=== PATIENT | female | born 1995 | race Caucasian/White ===

== ENCOUNTER 2020-09-11 10:16 | Emergency (ER) | payer MEDICAID, SELFPAY ==
[2020-09-11 10:21] VITALS: BP 111/64; PULSE 77; RESP 18; TEMP 36.9; O2SAT 98; BMI 20.9
--- NOTE | 2020-09-11 10:37 | ED_ITS ---
HPI - General Adult General Chief complaint: General Medical Stated complaint: cough Source: patient Mode of arrival: ambulatory Limitations: no limitations History of Present Illness HPI narrative: Patient presents to ED for cough, subjective fevers, headaches, body aches, and slight vomiting. 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 patient denies any shortness of breath, fever, chills, or weakness. Onset (ago): day(s) (2 days) Related Data Allergies Allergy/AdvReac Type Severity Reaction Status Date / Time No Known Allergies Allergy Unverified 08/11/20 17:02 [No Known Allergies*] Review of Systems Review of Systems: URI symptoms Yes all other systems are reviewed and are negative and unobtainable due to endotracheal tube Constitutional: Constitutional: Reports as per HPI, Reports no additional constitutional complaints, Reports chills, Reports fever(s) (subject fevers), Denies increased appetite and Denies night sweats Eyes: Eyes: Reports as per HPI and Reports no additional eye complaints ENT: Reports system reviewed and no additional complaints, except as documented and Reports as per HPI Cardiovascular: Cardiovascular: Reports as per HPI and Reports no additional cardiovascular complaints Respiratory: Respiratory: Reports as per HPI, Reports no additional respiratory complaints and Reports cough Gastrointestinal: Gastrointestinal: Reports as per HPI and Reports vomiting (vomitting resolved) Neurologic: Reports system reviewed and no additional complaints, except as documented and Reports as per HPI Psychiatric: Psychiatric: Reports no additional psychiatric complaints and Reports as per HPI [facility] Past Medical History Medical History (Updated 09/11/20 @ 11:15 by AFSHIN Pineda) No known health problems Social History Social History Alcohol intake: never Smoking Status: Current every day smoker Smoked in Last 30 Days: Yes Use of substances other than those prescribed or required for medical reasons: No Advance Directives: No Advance Directives Information Provided: No Physical Exam Vital Signs: Vital Signs: Vital Signs Temp Pulse Resp BP Pulse Ox 09/11/20 10:21 98.5 F 77 18 111/64 98 Body Mass Index 20.9 Const: General: cooperative, healthy appearing, comfortable, no acute distress and well developed Orientation/consciousness: patient oriented x3 HENMT: Head: Yes normal to inspection and Yes No palpable skull fracture present Eyes: General: appearance normal, both eyes and all related structures Neck: Neck: Yes normal visual inspection, Yes full ROM, Yes no lymphadenopathy, Yes no meningeal signs, No positive Brudzinski's sign and No positive Kernig's sign Chest: Chest palpation & inspection: normal inspection of the chest and normal palpation of entire chest wall Resp: Effort & Inspection: normal respiratory effort, able to speak in complete sentences, normal respiratory pattern, no audible wheezes, no cough, no grunting, not labored, no nasal flaring, no pursed lip breathing, no retractions, no stridor and not tachypneic Auscultation: clear to auscultation bilaterally Cardio: Jugular venous distension: no JVD Heart sounds: S1 normal heart sound present and S2 normal heart sound present GI: Inspection: Yes normal to inspection, No abdominal wall ecchymosis, No Abdominal wall edema, No distended and No incision Palpation (GI): Soft to palpation, not firm, nontender, no guarding and not rigid Percussion: Yes normal to percussion : General: No CVA tenderness and Yes no CVA tenderness Back/Spine/Pelvis: Back: no CVA tenderness, No CVA tenderness and No back tenderness Skin: General skin exam: no rashes or lesions noted Neuro: General: patient oriented x3, no meningeal signs and CN's II-XI intact bilaterally Cranial nerves: Yes CN's II-XII intact bilaterally Extrem: General: Yes normal to inspection and Yes full ROM Psych: Appearance: grossly normal, well kempt and not disheveled Course Course Course Narrative: History physical exam indicate URI. Patient does not need any labs or imaging. Patient is not toxic appearing. Patient on the phone talking to family members. Patient educated on self-isolation. patient swabbed from Covid-19 Reevaluation(s) Reevaluation #1: URI. Viral syndrome. Time: 11:12 Medical Decision Making [facility] Narrative Medical decision making narrative: URI. Viral Syndrome Discharge Plan Discharge Clinical Impression: Acute viral syndrome URI (upper respiratory infection) Qualifiers: URI type: unspecified viral URI Qualified Code(s): J06.9 - Acute upper respiratory infection, unspecified Patient Disposition: Home, Self-Care Instructions: Upper Respiratory Infection (ED), Viral Syndrome (ED) Additional Instructions: Return to the ED immediately for any chest pain, shortness of breath, weakness, inability to tolerate solid food/liquid, or any other concerning symptoms. Recommend 14 days self isolation if Covid-19 test comes back positive. Referrals: [place],[facility] [Primary Care Provider] - 2 days ( Viral syndrome and URI. COVID-19 testing pending. Recommend 14 days self-isolation if COVID test come back positive) Stand Alone Forms: Work/School Release Interventions: ED Discharge Assessment Last Done: 09/11/20 11:29 Discharge Date/Time: 09/11/20 11:36 Print Language: Albanian
== END 2020-09-11 11:36 | disposition home or self-care (01) ==
PROVIDERS: Physician Assistant; Emergency Provider Emergency Medicine
DX: J06.9 Acute upper respiratory infection, unspecified (principal); B34.9 Viral infection, unspecified; Z20.828 Contact with and (suspected) exposure to other viral communicable diseases; F17.200 Nicotine dependence, unspecified, uncomplicated
CPT/HCPCS: 87635; 99284

== ENCOUNTER 2020-11-11 16:26 | Emergency (ER) | payer MEDICAID, SELFPAY ==
[2020-11-11 16:30] VITALS: BP 124/68; PULSE 81; RESP 18; TEMP 36.9; O2SAT 98; BMI 20.9
[2020-11-11] MEDS: 0.9 % Sodium Chloride 1,000 ML 999 ML IVCONT (17:41)
[2020-11-11 17:52] LABS: MANUAL DIFF FLAG NO
[2020-11-11 18:02] LABS: Basophils Percent Auto 0.3 % (0-2); Eosinophils Absolute Auto 0.1 X10*3/uL (0.0-0.4); Eosinophils Percent Auto 0.7 % (0-4); Hematocrit 35.1 % (37-47); Hemoglobin 12.1 g/dl (12.0-16.0); Imm Gran Pct Auto 0.9 % (0.0-0.4); Lymphocytes Absolute Auto 2.7 X10*3/uL (1.2-4.9); Lymphocytes Percent Auto 25.2 % (20-40); Mean Corpuscular HGB Conc 34.5 g/dl (31.0-35.0); Mean Corpuscular Hemoglobin 29.6 pg (27.0-33.0); Mean Corpuscular Volume 85.8 fL (80-98); Mean Platelet Volume 11.3 fL (9.4-12.3); Monocytes Absolute Auto 0.8 X10*3/uL (0.1-1.2); Monocytes Percent Auto 7.8 % (2-11); Neutrophils Percent Auto 65.1 % (45-73); Platelet Count 201 X10*3/uL (160-400); Red Blood Count 4.09 X10*6/uL (4.20-5.50); Red Cell Distribution Width 12.8 % (11.0-16.0); White Blood Count 10.8 X10*3/uL (4.8-10.8)
--- NOTE | 2020-11-11 18:10 | ED_ITS ---
HPI - Nausea/Vomiting/Diarrhea General Chief complaint: Nausea/Vomiting/Diarrhea Stated complaint: vomiting Time Seen by Provider: 11/11/20 17:23 Source: patient Mode of arrival: ambulatory Limitations: no limitations History of Present Illness HPI Narrative: 25-year-old female presents with nausea vomiting with a positive test. Her last menstrual cycle was in the beginning of September. over the past 3 days she has been unable to eat, drink, has been constantly nauseous with dry heaving. She does not describe any chest pain or pressure, palpitations, edema, falls, trauma, ETOH or abuse. MD elicited complaint: nausea and vomiting Pertinent past history: anorexia Onset (ago): day(s) (3) Description of vomiting: bilious Description of diarrhea: watery Associated nausea: Yes Associated abdominal pain: No Location of pain: epigastric Pain consistency: intermittent Severity: moderate Quality: cramping Exacerbating factors: eating and vomiting Relieving factors: none Context: other ( ) Associated symptoms: denies other symptoms Related Data Previous Rx's Medication Instructions Recorded promethazine 12.5 mg PO Q6H PRN #14 tab 11/11/20 Allergies Allergy/AdvReac Type Severity Reaction Status Date / Time No Known Allergies Allergy Verified 11/11/20 16:33 [No Known Allergies*] Review of Systems Review of Systems: Constitutional: No Weight loss, No Fever, No Chills, No Night Sweats, No Fatigue, No Malaise ENT/Mouth: No Hearing loss, No Ear Pain, No Nasal Congestion, No Sinus Pain, No Hoarseness, No sore throat, No Rhinorrhea, No Swallowing Difficulty Eyes: No Eye Pain, No Swelling, No Redness, No Foreign Body, No Discharge, No Vision Changes Cardiovascular: No Chest Pain, No SOB, No Dyspnea on Exertion, No Orthopnea, No Edema, No Palpitations Respiratory: No Cough, No Sputum, No Wheezing, No Smoke Exposure, No Dyspnea Gastrointestinal: Positive Nausea, Positive Vomiting, no Diarrhea, no abdominal Pain, No Hematochezia, No Melena Genitourinary: no irregular bleeding, No Dysuria, No Urinary Frequency, No He maturia, No Urinary Incontinence, No Urgency, No Flank Pain, No Urinary Flow Changes, No Hesitancy Musculoskeletal: No joint pain, No Myalgias, No Joint Swelling Skin: No Skin Lesions, No rash Neuro: No Weakness, No Numbness, No Paresthesias, No Loss of Consciousness, No Dizziness, No Headache Psych: No Anxiety/Panic, No Depression, No SI/HI/AH/VH, No Social Issues Heme/Lymph: No Bruising, No Bleeding,No Lymphadenopathy Endocrine: No Polyuria, No Polydipsia, No Temperature Intolerance Yes all other systems are reviewed and are negative Gastrointestinal: Gastrointestinal: Reports nausea PMFSH Past Medical History Attestation statement: The following information was validated with the patient. Medical History No known health problems Social History Social History Alcohol intake: never Smoking Status: Current every day smoker Smoked in Last 30 Days: No Use of substances other than those prescribed or required for medical reasons: No Advance Directives: No Advance Directives Information Provided: Yes Physical Exam Vital Signs: Vital Signs: Last Vital Signs Temp 98.4 F 11/11/20 16:30 Pulse 81 11/11/20 16:30 Resp 18 11/11/20 16:30 BP 124/68 11/11/20 16:30 Pulse Ox 98 11/11/20 16:30 Body Mass Index 20.9 Appearance: Alert. Oriented X3. No acute distress. Eyes: Pupils equal, round and reactive to light. ENT: Pharynx normal. Neck: Normal inspection. Neck supple. CVS: Normal heart rate and rhythm. Pulses normal. Respiratory: No respiratory distress. Breath sounds normal. Abdomen: Soft and nontender. Skin: Skin warm and dry. Normal skin color. Normal skin turgor. Extremities: No lower extremity edema. Neuro: No motor deficit. No sensory deficit. Course Course Course Narrative: 25-year-old female 2 para 1 0 presents with nausea, vomiting, positive test. Plan is for antiemetics and fluid resuscitation. She does not have any other complaints CBC, Chem 7 and hCG quant pending. CBC Chem 7 normal, plan of care is discharged home. Patient does feel better after Phenergan and a L of fluid. Will discharge home with Phenergan. Patient verbalized understanding of and agrees to plan of care discharge home. She will follow-up with OBGYN for MDM - Nausea/Vomiting/Diarrhea MDM Narrative Medical decision making narrative: hyperemesis gravidarum Differential Diagnosis Differential diagnosis: Likely gastroenteritis and dehydration Medical Records Attestation: I reviewed the patient's medical records. Lab Data Attestation: I reviewed the patient's lab results. Result diagrams: 11/11/20 17:36 11/11/20 17:36 Labs: Lab Results 11/11/20 11/11/20 Range/Units 17:36 17:36 WBC 10.8 (4.8-10.8) X10*3/uL RBC 4.09 L (4.20-5.50) X10*6/uL Hgb 12.1 (12.0-16.0) g/dl Hct 35.1 L (37-47) % MCV 85.8 (80-98) fL MCH 29.6 (27.0-33.0) pg MCHC 34.5 (31.0-35.0) g/dl RDW 12.8 (11.0-16.0) % Plt Count 201 (160-400) X10*3/uL MPV 11.3 (9.4-12.3) fL Immature Gran % (Auto) 0.9 H (0.0-0.4) % Neut % (Auto) 65.1 (45-73) % Lymph % (Auto) 25.2 (20-40) % [place] % (Auto) 7.8 (2-11) % Eos % (Auto) 0.7 (0-4) % Baso % (Auto) 0.3 (0-2) % Lymph # (Auto) 2.7 (1.2-4.9) X10*3/uL [place] # (Auto) 0.8 (0.1-1.2) X10*3/uL Eos # (Auto) 0.1 (0.0-0.4) X10*3/uL Baso # (Auto) 0.0 (0.0-0.2) X10*3/uL Abs Immat Gran (auto) 0.10 H (0.00-0.03) X10*3/uL Absolute Neuts (auto) 7.0 (2.0-8.3) X10*3/uL Absolute Nucleated RBC 0.000 (0.0-0.012) X10*3/uL Nucleated RBC % (auto) 0.0 (0.0-0.2) /100WBC Sodium 137 (135-145) mmol/L Potassium 4.0 (3.3-5.1) mmol/l Chloride 104 (96-108) mmol/L Carbon Dioxide 26 (22-29) mmol/L Anion Gap 11 L (12-20) BUN 7 L (9-16) mg/dL Creatinine 0.63 (0.5-1.4) mg/dL Estim Creat Clear Calc 129.2 Estimated GFR > 60 Random Glucose 88 (60-115) mg/dL Calcium 9.2 (8.4-10.2) mg/dL Total Bilirubin 0.4 (0.0-1.0) mg/dL Direct Bilirubin 0.2 (0.0-0.5) mg/dL AST 15 (5-31) U/L ALT 18 (0-31) U/L Alkaline Phosphatase 49 (39-117) U/L Total Protein 7.0 (6.5-8.0) g/dL Albumin 4.6 (3.5-5.0) g/dL Lipase 13 (8-78) U/L Beta HCG, Quant 18650 mIU/mL Discharge Plan Discharge Clinical Impression: Hyperemesis gravidarum Patient Disposition: Home, Self-Care Instructions: Hyperemesis Gravidarum (ED) Additional Instructions: you were evaluated for nausea consistent with first-trimester . Your hCG quant is 32,422 consistent with 6-8 weeks of . Please follow-up with your OBGYN. Please use Phenergan as directed. Thank you for choosing this emergency department for evaluation. Please follow-up with primary care physician as needed. Return to the emergency department for any new, concerning, or worsening symptoms. Prescriptions: New promethazine 12.5 mg tablet 12.5 mg PO Q6H PRN (Reason: nausea and vomiting) Qty: 14 RF: 0 Interventions: ED Discharge Assessment Last Done: 11/11/20 19:19 Discharge Date/Time: 11/11/20 19:21
[2020-11-11 18:19] LABS: Alanine Aminotransferase 18 U/L (0-31); Albumin Level 4.6 g/dL (3.5-5.0); Alkaline Phosphatase 49 U/L (39-117); Anion Gap 11 (12-20); Aspartate Amino Transferase 15 U/L (5-31); Bilirubin Direct 0.2 mg/dL (0.0-0.5); Bilirubin Total 0.4 mg/dL (0.0-1.0); Blood Urea Nitrogen 7 mg/dL (9-16); Calcium 9.2 mg/dL (8.4-10.2); Carbon Dioxide 26 mmol/L (22-29); Chloride 104 mmol/L (96-108); Creatinine Clr Calc Pharmacy 129.2; Estimated Glomerular Filt Rate > 60; Glucose Random 88 mg/dL (60-115); Lipase 13 U/L (8-78); Sodium 137 mmol/L (135-145)
[2020-11-11 18:48] LABS: HCG Quantitative 32422 mIU/mL
== END 2020-11-11 19:21 | disposition home or self-care (01) ==
PROVIDERS: Nurse Practitioner Family; Emergency Provider Emergency Medicine
DX: O21.0 Mild hyperemesis gravidarum (principal); Z3A.01 Less than 8 weeks gestation of pregnancy
CPT/HCPCS: 36415; 80048; 80076; 83690; 84702; 85025; 96361; 96374; 99284

== ENCOUNTER 2020-11-13 10:56 | Emergency (ER) | payer MEDICAID, SELFPAY ==
[2020-11-13 11:19] VITALS: BP 123/54; PULSE 71; RESP 18; TEMP 36.8; O2SAT 99; BMI 20.9
--- NOTE | 2020-11-13 11:38 | ED_ITS ---
HPI - Nausea/Vomiting/Diarrhea General Chief complaint: Nausea/Vomiting/Diarrhea Stated complaint: vomiting Time Seen by Provider: 11/13/20 11:38 Source: patient Mode of arrival: ambulatory Limitations: no limitations History of Present Illness HPI Narrative: 6 to 8 weeks no pain or bleeding but daily persistent n/v MD elicited complaint: nausea and vomiting Pertinent past history: other (6 to 8 weeks ) Onset (ago): week(s) (1) Description of vomiting: watery Associated nausea: Yes Associated abdominal pain: No Pain consistency: constant Severity: moderate Exacerbating factors: none Relieving factors: none Context: other (newly ) Associated symptoms: loss of appetite, malaise and nausea/vomiting Related Data Previous Rx's Medication Instructions Recorded promethazine 12.5 mg PO Q6H PRN #14 tab 11/11/20 doxylamine-pyridoxine (vit B6) 1 tab PO BID #30 tab 11/13/20 ondansetron 4 mg PO Q8H PRN #20 tab 11/13/20 prochlorperazine maleate 5 mg PO BID PRN #20 tab 11/13/20 [Compazine] Allergies Allergy/AdvReac Type Severity Reaction Status Date / Time No Known Allergies Allergy Verified 11/11/20 16:33 [No Known Allergies*] Review of Systems Review of Systems: Constitutional : No Weight loss, No Fever, No Chills ENT/Mouth : No sore throat, No Rhinorrhea Eyes: No Swelling, No Redness Cardiovascular : No Chest Pain, No SOB, NoEdema Respiratory : No Cough, No Sputum, No Wheezing Gastrointestinal : Positive Nausea, Positive Vomiting, no Diarrhea, no abdominal Pain, No Hematochezia, No Melena Genitourinary : No Dysuria, No Urinary Frequency, No Hematuria, No Urgency , no bleeding Musculoskeletal : No joint pain, No Myalgias, No Joint Swelling Skin : No Skin Lesions, No rash Neuro : No Weakness, No Numbness, No Dizziness, No Headache Psych : No Anxiety/Panic, No Depression Heme/Lymph: No Bruising, No Lymphadenopathy Endocrine : No Polyuria, No Polydipsia All other systems reviewed and are negative. Gastrointestinal: Gastrointestinal: Reports nausea PMFSH Past Medical History Attestation statement: The following information was validated with the patient. Medical History No known health problems Social History Social History Alcohol intake: never Smoking Status: Former smoker Smoked in Last 30 Days: Yes Use of substances other than those prescribed or required for medical reasons: No Advance Directives: No Advance Directives Information Provided: Yes Physical Exam Vital Signs: Vital Signs: Last Vital Signs Temp 98.2 F 11/13/20 11:19 Pulse 72 11/13/20 13:50 Resp 16 11/13/20 13:50 BP 98/52 L 11/13/20 13:50 Pulse Ox 99 11/13/20 13:50 Body Mass Index 20.9 Appearance: Alert. Oriented X3. Anxious, tearful, mild acute distress. Eyes: Pupils equal, round and reactive to light. ENT: Pharynx dry MMM Neck: Normal inspection. Neck supple. CVS: Normal heart rate and rhythm. Pulses normal. Respiratory: No respiratory distress. Breath sounds normal. Abdomen: Soft and nontender. Skin: Skin warm and dry. Normal skin color. Normal skin turgor. Extremities: No lower extremity edema. No calf ttp Neuro: Oriented X 3. No motor deficit. No sensory deficit. Course Course Course Narrative: given compazine and now finally asleep , US normal BP normal only 6 to 8 weeks unsure cause of elevated LFTs - anticipate DC with close follow up MDM - Nausea/Vomiting/Diarrhea MDM Narrative Medical decision making narrative: 25 yo female 6 to 8 weeks here with n/v daily no pain or bleeding at this time - will obtain labs, UA, hydrate - start on B6 and doxylamine as well as zofran given no response to home promethazine Lab Data Result diagrams: 11/13/20 12:02 11/13/20 12:02 Labs: Lab Results 11/13/20 11/13/20 11/13/20 Range/Units 12:02 12:02 13:52 WBC 9.9 (4.8-10.8) X10*3/uL RBC 4.22 (4.20-5.50) X10*6/uL Hgb 12.4 (12.0-16.0) g/dl Hct 36.3 L (37-47) % MCV 86.0 (80-98) fL MCH 29.4 (27.0-33.0) pg MCHC 34.2 (31.0-35.0) g/dl RDW 12.7 (11.0-16.0) % Plt Count 210 (160-400) X10*3/uL MPV 10.8 (9.4-12.3) fL Immature Gran % (Auto) 0.3 (0.0-0.4) % Neut % (Auto) 60.7 (45-73) % Lymph % (Auto) 28.5 (20-40) % [facility] % (Auto) 9.4 (2-11) % Eos % (Auto) 0.8 (0-4) % Baso % (Auto) 0.3 (0-2) % Lymph # (Auto) 2.8 (1.2-4.9) X10*3/uL [facility] # (Auto) 0.9 (0.1-1.2) X10*3/uL Eos # (Auto) 0.1 (0.0-0.4) X10*3/uL Baso # (Auto) 0.0 (0.0-0.2) X10*3/uL Abs Immat Gran (auto) 0.03 (0.00-0.03) X10*3/uL Absolute Neuts (auto) 6.0 (2.0-8.3) X10*3/uL Absolute Nucleated RBC 0.000 (0.0-0.012) X10*3/uL Nucleated RBC % (auto) 0.0 (0.0-0.2) /100WBC Sodium 136 (135-145) mmol/L Potassium 4.0 (3.3-5.1) mmol/l Chloride 105 (96-108) mmol/L Carbon Dioxide 20 L (22-29) mmol/L Anion Gap 15 (12-20) BUN 7 L (9-16) mg/dL Creatinine 0.62 (0.5-1.4) mg/dL Estim Creat Clear Calc 131.3 Estimated GFR > 60 Random Glucose 83 (60-115) mg/dL Calcium 9.2 (8.4-10.2) mg/dL Magnesium 1.8 (1.6-2.6) mg/dL Total Bilirubin 0.8 (0.0-1.0) mg/dL Direct Bilirubin 0.3 (0.0-0.5) mg/dL AST 103 H (5-31) U/L ALT 112 H (0-31) U/L Alkaline Phosphatase 51 (39-117) U/L Total Protein 7.2 (6.5-8.0) g/dL Albumin 4.5 (3.5-5.0) g/dL Lipase 16 (8-78) U/L Urine Color DARK YELLOW Urine Appearance HAZY Urine pH 7.5 (5.0-8.0) Ur Specific [place] 1.020 (1.005-1.025) Urine Protein TRACE (NEG-TRACE) MG/DL Urine Glucose (UA) NEG (NEG) MG/DL Urine Ketones >=80 (NEG) MG/DL Urine Blood NEG (NEG) Urine Nitrite NEG (NEG) Ur Leukocyte Esterase NEG (NEG) Discharge Plan Discharge Clinical Impression: Hyperemesis gravidarum, Elevated liver enzymes Instructions: Hyperemesis Gravidarum (ED) Additional Instructions: return to ED for any worsening symptoms or concerns Prescriptions: New doxylamine-pyridoxine (vit B6) 10-10 mg tablet,delayed release (DR/EC) 1 tab PO BID Qty: 30 RF: 1 ondansetron 4 mg tablet,disintegrating 4 mg PO Q8H PRN (Reason: nausea and vomiting) Qty: 20 RF: 0 prochlorperazine maleate [Compazine] 5 mg tablet 5 mg PO BID PRN (Reason: nausea and vomiting) Qty: 20 RF: 0 No Action promethazine 12.5 mg tablet 12.5 mg PO Q6H PRN (Reason: nausea and vomiting) Qty: 14 RF: 0 Referrals: Physician,None [Primary Care Provider] - 2 days (please call your OBGYN you will need repeat liver function tests in 5 days) Stand Alone Forms: Work/School Release
[2020-11-13] MEDS: diphenhydrAMINE HCL 50 MG/ML VIAL 25 MG IVPUSH ×2 (12:08→14:10)
[2020-11-13] MEDS: 0.9 % Sodium Chloride 1,000 ML 999 ML IVCONT ×3 (12:08→15:56)
[2020-11-13 12:09] LABS: Basophils Percent Auto 0.3 % (0-2); Eosinophils Absolute Auto 0.1 X10*3/uL (0.0-0.4); Eosinophils Percent Auto 0.8 % (0-4); Hematocrit 36.3 % (37-47); Hemoglobin 12.4 g/dl (12.0-16.0); Imm Gran Abs Auto 0.03 X10*3/uL (0.00-0.03); Imm Gran Pct Auto 0.3 % (0.0-0.4); Lymphocytes Absolute Auto 2.8 X10*3/uL (1.2-4.9); Lymphocytes Percent Auto 28.5 % (20-40); Mean Corpuscular HGB Conc 34.2 g/dl (31.0-35.0); Mean Corpuscular Hemoglobin 29.4 pg (27.0-33.0); Mean Platelet Volume 10.8 fL (9.4-12.3); Monocytes Absolute Auto 0.9 X10*3/uL (0.1-1.2); Monocytes Percent Auto 9.4 % (2-11); Neutrophils Percent Auto 60.7 % (45-73); Platelet Count 210 X10*3/uL (160-400); Red Blood Count 4.22 X10*6/uL (4.20-5.50); Red Cell Distribution Width 12.7 % (11.0-16.0); White Blood Count 9.9 X10*3/uL (4.8-10.8)
[2020-11-13] MEDS: Metoclopramide HCl 10 MG/2 ML VIAL IVPUSH (12:09)
[2020-11-13 12:11] LABS: MANUAL DIFF FLAG NO
[2020-11-13 13:00] LABS: Alanine Aminotransferase 112 U/L (0-31); Albumin Level 4.5 g/dL (3.5-5.0); Alkaline Phosphatase 51 U/L (39-117); Anion Gap 15 (12-20); Aspartate Amino Transferase 103 U/L (5-31); Bilirubin Direct 0.3 mg/dL (0.0-0.5); Bilirubin Total 0.8 mg/dL (0.0-1.0); Blood Urea Nitrogen 7 mg/dL (9-16); Calcium 9.2 mg/dL (8.4-10.2); Carbon Dioxide 20 mmol/L (22-29); Chloride 105 mmol/L (96-108); Creatinine Clr Calc Pharmacy 131.3; Estimated Glomerular Filt Rate > 60; Glucose Random 83 mg/dL (60-115); Lipase 16 U/L (8-78); Magnesium 1.8 mg/dL (1.6-2.6); Sodium 136 mmol/L (135-145); Total Protein 7.2 g/dL (6.5-8.0)
--- NOTE | 2020-11-13 13:16 | US_ITS ---
EXAMINATION: US ABDOMEN LIMITED CLINICAL INFORMATION: Vomiting elevated LFTs.. COMPARISON: None TECHNIQUE: Real-time imaging of the right upper quadrant abdominal viscera. FINDINGS: PANCREAS: The visualized portion of the pancreas head and body are normal, portion of the pancreatic body and tail, not visualized are obscured by bowel gas. LIVER: Normal. The liver is normal in size. The liver contour is normal. Parenchymal echogenicity is normal. No focal hepatic lesion. There is no intrahepatic biliary duct dilatation seen. GALLBLADDER: Normal. The gallbladder is physiologically distended without evidence of stones, sludge, polyps, wall thickening or pericholecystic fluid. COMMON BILE DUCT: Normal in caliber measuring 0.27 cm in diameter. RIGHT KIDNEY: Normal. No hydronephrosis. No renal calculi or focal parenchymal lesions. The kidney measures 10.6 cm in maximum dimension. FREE FLUID: None. US/US abdomen limited IMPRESSION: Normal renal ultrasound. No evidence of gallbladder disease, no explanation for patient's symptoms.
[2020-11-13 13:50] VITALS: BP 98/52; PULSE 72; RESP 16; O2SAT 99
[2020-11-13] MEDS: Prochlorperazine Edisylate 10 MG/2 ML VIAL IVPUSH (13:53)
[2020-11-13 14:04] LABS: Glucose Urine UA NEG (NEG); Leukocyte Esterase Urine NEG (NEG); Nitrite Urine NEG (NEG); PH 7.5 (5.0-8.0); Urine Blood NEG (NEG); Urine Ketones >=80 MG/DL (NEG); Urine Protein TRACE MG/DL (NEG-TRACE)
[2020-11-13 14:07] LABS: Appearance Urine HAZY; Color Urine DARK YELLOW
--- NOTE | 2020-11-13 14:14 | PC.NURSE ---
patient continues w/ n/v, physician aware and pt medicated per orders. pt aware of plan of care for ultrasound
[2020-11-13 16:00] VITALS: BP 97/45; PULSE 70; RESP 16; TEMP 36.8; O2SAT 99
== END 2020-11-13 17:21 | disposition home or self-care (01) ==
PROVIDERS: Emergency Provider Emergency Medicine
DX: O21.0 Mild hyperemesis gravidarum (principal); O26.891 Other specified pregnancy related conditions, first trimester; R79.89 Other specified abnormal findings of blood chemistry; Z3A.01 Less than 8 weeks gestation of pregnancy
CPT/HCPCS: 36415; 76705; 80048; 80076; 81003; 83690; 83735; 85025; 96361; 96374; 96375; 96376; 99284; 99285; J1200; J2765

== ENCOUNTER 2020-11-15 10:46 | Outpatient (REF) | payer MEDICAID, SELFPAY ==
[2020-11-15 11:58] LABS: Hematocrit 34.2 % (37-47); Hemoglobin 11.5 g/dl (12.0-16.0); Mean Corpuscular HGB Conc 33.6 g/dl (31.0-35.0); Mean Corpuscular Hemoglobin 29.3 pg (27.0-33.0); Mean Corpuscular Volume 87.2 fL (80-98); Mean Platelet Volume 11.4 fL (9.4-12.3); Platelet Count 203 X10*3/uL (160-400); Red Blood Count 3.92 X10*6/uL (4.20-5.50); Red Cell Distribution Width 12.8 % (11.0-16.0); White Blood Count 9.7 X10*3/uL (4.8-10.8)
== END 2020-11-15 10:47 | disposition home or self-care (01) ==
LOC: HO.LAB 10:46
PROVIDERS: Visit Provider Nurse Practitioner Family
DX: O21.9 Vomiting of pregnancy, unspecified (principal); Z34.91 Encounter for supervision of normal pregnancy, unspecified, first trimester
CPT/HCPCS: 36415; 84702; 85027

== ENCOUNTER 2020-11-20 12:21 | Emergency (ER) | payer MEDICAID, SELFPAY | END 2020-11-20 17:21 | disposition left against medical advice (07) | LOC: HO.ED 16:58 | PROVIDERS: Emergency Provider Emergency Medicine Emergency Medical Services | DX: O21.0 Mild hyperemesis gravidarum (principal); Z3A.00 Weeks of gestation of pregnancy not specified ==

== ENCOUNTER 2020-11-21 11:23 | Outpatient (REF) | payer MEDICAID, SELFPAY | END 2020-11-21 11:24 | disposition home or self-care (01) | LOC: HO.LAB 11:23 | PROVIDERS: Visit Provider Internal Medicine | DX: Z20.828 Contact with and (suspected) exposure to other viral communicable diseases (principal) | CPT/HCPCS: C9803; U0003 ==

== ENCOUNTER 2020-11-24 12:33 | Emergency (ER) | payer MEDICAID, SELFPAY ==
[2020-11-24 12:37] VITALS: BP 116/64; PULSE 79; RESP 18; TEMP 36.6; O2SAT 97; BMI 20.9
[2020-11-24 13:03] VITALS: BP 106/60; PULSE 103; RESP 16; TEMP 37.1; O2SAT 98
[2020-11-24] MEDS: 0.9 % Sodium Chloride 1,000 ML 999 ML IVCONT (13:42)
[2020-11-24 13:44] LABS: MANUAL DIFF FLAG NO
[2020-11-24 13:45] LABS: Basophils Percent Auto 0.1 % (0-2); Eosinophils Absolute Auto 0.1 X10*3/uL (0.0-0.4); Eosinophils Percent Auto 1.4 % (0-4); Hematocrit 36.5 % (37-47); Hemoglobin 12.3 g/dl (12.0-16.0); Imm Gran Abs Auto 0.02 X10*3/uL (0.00-0.03); Imm Gran Pct Auto 0.2 % (0.0-0.4); Lymphocytes Absolute Auto 2.1 X10*3/uL (1.2-4.9); Lymphocytes Percent Auto 25.7 % (20-40); Mean Corpuscular HGB Conc 33.7 g/dl (31.0-35.0); Mean Corpuscular Hemoglobin 29.1 pg (27.0-33.0); Mean Corpuscular Volume 86.3 fL (80-98); Mean Platelet Volume 11.3 fL (9.4-12.3); Monocytes Absolute Auto 0.6 X10*3/uL (0.1-1.2); Monocytes Percent Auto 7.7 % (2-11); Neutrophils Absolute Auto 5.2 X10*3/uL (2.0-8.3); Neutrophils Percent Auto 64.9 % (45-73); Platelet Count 175 X10*3/uL (160-400); Red Blood Count 4.23 X10*6/uL (4.20-5.50); Red Cell Distribution Width 12.6 % (11.0-16.0)
[2020-11-24 14:06] LABS: Alanine Aminotransferase 35 U/L (0-31); Albumin Level 4.4 g/dL (3.5-5.0); Alkaline Phosphatase 47 U/L (39-117); Anion Gap 10 (12-20); Aspartate Amino Transferase 12 U/L (5-31); Bilirubin Direct 0.2 mg/dL (0.0-0.5); Bilirubin Total 0.3 mg/dL (0.0-1.0); Blood Urea Nitrogen 7 mg/dL (9-16); Carbon Dioxide 27 mmol/L (22-29); Chloride 103 mmol/L (96-108); Creatinine Clr Calc Pharmacy 135.7; Estimated Glomerular Filt Rate > 60; Glucose Random 97 mg/dL (60-115); Magnesium 1.7 mg/dL (1.6-2.6); Potassium 3.9 mmol/l (3.3-5.1); Sodium 136 mmol/L (135-145); Total Protein 6.8 g/dL (6.5-8.0)
[2020-11-24 14:15] VITALS: BP 96/55; PULSE 59; RESP 20; TEMP 37.1; O2SAT 100
--- NOTE | 2020-11-24 15:02 | ED_ITS ---
HPI - General Chief complaint: Nausea/Vomiting/Diarrhea Stated complaint: +covid, issues Time Seen by Provider: 11/24/20 12:40 Source: patient Mode of arrival: ambulatory Limitations: no limitations History of Present Illness HPI Narrative: 25yoF who is 6-8 weeks [id number] presenting to the ED c c/o N/V intermittently since 11/13/2020 when she was seen here worse today. She was prescribed medications but she reports she never picked them up at the pharmacy. Patient denies any fevers, chills, chest pain or shortness of breath, abdominal pain, back pain, urinary symptoms, vaginal discharge, hematuria or any other symptoms complaints or concerns at this time. Reports she has a follow-up appointment with [facility] silk blocker on December 06 for an ultrasound. Related Data Previous Rx's Medication Instructions Recorded promethazine 12.5 mg PO Q6H PRN #14 tab 11/11/20 doxylamine-pyridoxine (vit B6) 1 tab PO BID #30 tab 11/13/20 ondansetron 4 mg PO Q8H PRN #20 tab 11/13/20 prochlorperazine maleate 5 mg PO BID PRN #20 tab 11/13/20 [Compazine] promethazine 25 mg PO Q6H PRN #15 tab 11/24/20 Allergies Allergy/AdvReac Type Severity Reaction Status Date / Time No Known Allergies Allergy Verified 11/11/20 16:33 [No Known Allergies*] Review of Systems Review of Systems: Constitutional : No Fever, No Chills ENT/Mouth : No sore throat, No Rhinorrhea Eyes: No Eye Pain, No Redness Cardiovascular : No Chest Pain, No SOB Respiratory : No Cough, No Sputum, No Wheezing Gastrointestinal : + Nausea, + Vomiting, No Diarrhea, No abdominal pain, Genitourinary : No irregular bleeding, No Dysuria, No Urinary Frequency, No pelvic pain Musculoskeletal : No Myalgias Skin : No rash Neuro : No Weakness, No Headache Psych : No Anxiety/Panic, No Depression Heme/Lymph: No bruising, No Lymphadenopathy Endocrine : No Polyuria, No Polydipsia Yes all other systems are reviewed and are negative [facility] Past Medical History Attestation statement: The following information was validated with the patient. Medical History No known health problems Social History Social History Alcohol intake: never Smoking Status: Former smoker Smoked in Last 30 Days: No Use of substances other than those prescribed or required for medical reasons: No Advance Directives: No Advance Directives Information Provided: No Physical Exam Vital Signs: Vital Signs: Last Vital Signs Temp 98.8 F 11/24/20 14:15 Pulse 59 11/24/20 14:15 Resp 20 11/24/20 14:15 BP 96/55 L 11/24/20 14:15 Pulse Ox 100 11/24/20 14:15 Body Mass Index 20.9 vital signs have been reviewed as normal and appeared to be correct. Blood pressure normal. Heart rate normal. Respiration rate normal. Temperature normal. Oxygen saturation normal. Appearance: Alert. Oriented X3. No acute distress. Head: Normal external exam. Normocephalic. Eyes: PERRLA. EOMI. Conjunctiva and sclera normal. Eyelids normal. ENT: Pharynx normal. Uvula midline. Moist mucous membranes. Neck: Normal inspection. Neck supple. FROM. No adenopathy. No meningeal signs. CVS: Normal heart rate and rhythm. Heart sound normal. No murmurs noted. Pulses normal throughout. Respiratory: No respiratory distress. Painless inspiration. Breath sounds normal. No wheezes/rales/rhonchi noted. Chest nontender. No accessory muscle usage noted or decreased air movement noted. Abdomen: Soft and nontender. No guarding. No rigidity. Bowel sounds normal in all 4 quadrants. No distention noted. No organomegaly noted. No visible injury noted. No rebound tenderness. Negative Rovsing sign. Negative obturator's sign. Negative psoas sign. Negative Martins sign. Back: No CVA tenderness. Full range of motion noted. Skin: Skin warm and dry. Normal skin color. Normal skin turgor. No rashes/lesions/lacerations noted. Extremities: Extremities exhibit normal range of motion. Extremities nontender. Neuro: Oriented X 3. No motor deficit. No sensory deficit. Reflexes normal. Course Course Course Narrative: 13:30PM - 25yoF who is 6-8 weeks [id number] presenting to the ED c c/o N/V intermittently since 11/13/2020 when she was seen here worse today. - Concern for hyperemesis gravidarum vs dehydration vs electrolyte abnormality - Plan: Labs. Provide a L of IV fluids and 12.5 mg of IV Phenergan then re- evaluate. Reevaluation(s) Reevaluation #1: - All labs WNL. Will attempt a p.o. trial for possible discharge. Time: 15:08 Reevaluation #2: - patient feels much better is tolerating p.o. fluids at this time. Will DC home with a short script for Phenergan and instruct the patient to slat pickler her prescriptions at the pharmacy and to return if any new or worsening symptoms to follow up with [facility] for her OBGYN/ultrasound appointment next month. Patient understands agrees the plan. Time: 15:20 MDM - OB/Uterine Contractions Medical Records Attestation: I reviewed the patient's medical records. Lab Data Attestation: I reviewed the patient's lab results. Result diagrams: 11/24/20 13:39 11/24/20 13:39 Labs: Lab Results 11/24/20 11/24/20 11/24/20 Range/Units 13:39 13:39 13:39 WBC 8.0 (4.8-10.8) X10*3/uL RBC 4.23 (4.20-5.50) X10*6/uL Hgb 12.3 (12.0-16.0) g/dl Hct 36.5 L (37-47) % MCV 86.3 (80-98) fL MCH 29.1 (27.0-33.0) pg MCHC 33.7 (31.0-35.0) g/dl RDW 12.6 (11.0-16.0) % Plt Count 175 (160-400) X10*3/uL MPV 11.3 (9.4-12.3) fL Immature Gran % (Auto) 0.2 (0.0-0.4) % Neut % (Auto) 64.9 (45-73) % Lymph % (Auto) 25.7 (20-40) % [place] % (Auto) 7.7 (2-11) % Eos % (Auto) 1.4 (0-4) % Baso % (Auto) 0.1 (0-2) % Lymph # (Auto) 2.1 (1.2-4.9) X10*3/uL [place] # (Auto) 0.6 (0.1-1.2) X10*3/uL Eos # (Auto) 0.1 (0.0-0.4) X10*3/uL Baso # (Auto) 0.0 (0.0-0.2) X10*3/uL Abs Immat Gran (auto) 0.02 (0.00-0.03) X10*3/uL Absolute Neuts (auto) 5.2 (2.0-8.3) X10*3/uL Absolute Nucleated RBC 0.000 (0.0-0.012) X10*3/uL Nucleated RBC % (auto) 0.0 (0.0-0.2) /100WBC Hold Blue Top SEE NOTE Sodium 136 (135-145) mmol/L Potassium 3.9 (3.3-5.1) mmol/l Chloride 103 (96-108) mmol/L Carbon Dioxide 27 (22-29) mmol/L Anion Gap 10 L (12-20) BUN 7 L (9-16) mg/dL Creatinine 0.60 (0.5-1.4) mg/dL Estim Creat Clear Calc 135.7 Estimated GFR > 60 Random Glucose 97 (60-115) mg/dL Calcium 9.0 (8.4-10.2) mg/dL Magnesium 1.7 (1.6-2.6) mg/dL Total Bilirubin 0.3 (0.0-1.0) mg/dL Direct Bilirubin 0.2 (0.0-0.5) mg/dL AST 12 D (5-31) U/L ALT 35 H (0-31) U/L Alkaline Phosphatase 47 (39-117) U/L Total Protein 6.8 (6.5-8.0) g/dL Albumin 4.4 (3.5-5.0) g/dL Beta HCG, Quant [id number] mIU/mL Discharge Plan Discharge Clinical Impression: Hyperemesis gravidarum Patient Disposition: Home, Self-Care Instructions: Hyperemesis Gravidarum (ED) Prescriptions: New promethazine 25 mg tablet 25 mg PO Q6H PRN (Reason: nausea and vomiting) Qty: 15 RF: 0 No Action promethazine 12.5 mg tablet 12.5 mg PO Q6H PRN (Reason: nausea and vomiting) Qty: 14 RF: 0 doxylamine-pyridoxine (vit B6) 10-10 mg tablet,delayed release (DR/EC) 1 tab PO BID Qty: 30 RF: 1 ondansetron 4 mg tablet,disintegrating 4 mg PO Q8H PRN (Reason: nausea and vomiting) Qty: 20 RF: 0 prochlorperazine maleate [Compazine] 5 mg tablet 5 mg PO BID PRN (Reason: nausea and vomiting) Qty: 20 RF: 0 Referrals: [place] [Primary Care Provider[facility] - 2 days Stand Alone Forms: Work/School Release Print Language: Citizen Of [place]
--- NOTE | 2020-11-24 15:23 | PC.NURSE ---
pt tolerating PO intake. She has had no vomiting and states nausea id better. will continue to monitor.
--- NOTE | 2020-11-24 15:24 | PC.NURSE ---
did not obtain heart tones, pt 6-8 weeks , will be unable to find heart tones at this gestational. age. Provider aware and states do not perform.
[2020-11-24 15:27] VITALS: BP 96/55; PULSE 67; RESP 16; TEMP 37.1; O2SAT 99
== END 2020-11-24 15:49 | disposition home or self-care (01) ==
PROVIDERS: Physician Assistant Medical; Emergency Provider Emergency Medicine Emergency Medical Services
DX: O21.0 Mild hyperemesis gravidarum (principal); Z3A.08 8 weeks gestation of pregnancy; Z20.828 Contact with and (suspected) exposure to other viral communicable diseases
CPT/HCPCS: 36415; 80048; 80076; 83735; 84702; 85025; 96361; 96374; 99284

== ENCOUNTER 2020-11-27 13:05 | Emergency (ER) | payer MEDICAID, SELFPAY ==
[2020-11-27 14:22] VITALS: BP 107/65; PULSE 72; RESP 20; TEMP 36.7; O2SAT 100; BMI 20.1
[2020-11-27] MEDS: 0.9 % Sodium Chloride 1,000 ML 999 ML IVCONT (14:39)
[2020-11-27 14:53] LABS: Basophils Percent Auto 0.2 % (0-2); Eosinophils Absolute Auto 0.1 X10*3/uL (0.0-0.4); Hemoglobin 12.1 g/dl (12.0-16.0); Imm Gran Abs Auto 0.04 X10*3/uL (0.00-0.03); Imm Gran Pct Auto 0.4 % (0.0-0.4); Lymphocytes Absolute Auto 2.1 X10*3/uL (1.2-4.9); Lymphocytes Percent Auto 23.6 % (20-40); MANUAL DIFF FLAG NO; Mean Corpuscular HGB Conc 33.6 g/dl (31.0-35.0); Mean Corpuscular Hemoglobin 28.9 pg (27.0-33.0); Mean Corpuscular Volume 85.9 fL (80-98); Mean Platelet Volume 11.2 fL (9.4-12.3); Monocytes Absolute Auto 0.7 X10*3/uL (0.1-1.2); Monocytes Percent Auto 7.6 % (2-11); Neutrophils Percent Auto 67.2 % (45-73); Platelet Count 212 X10*3/uL (160-400); Red Blood Count 4.19 X10*6/uL (4.20-5.50); Red Cell Distribution Width 12.6 % (11.0-16.0)
--- NOTE | 2020-11-27 14:54 | ED_ITS ---
HPI - Nausea/Vomiting/Diarrhea General Chief complaint: Nausea/Vomiting/Diarrhea Stated complaint: vomiting, covid + Time Seen by Provider: 11/27/20 14:29 Source: patient Mode of arrival: ambulatory Limitations: no limitations History of Present Illness HPI Narrative: 25 y/o currently in her 1st trimester (unknown GA, LMP 11/- maximiliano) who presents with daily N/V, worse in the mornings. She was diagnosed with COVID-19 about 2 weeks ago and just got re-tested yesterday. She has no respiratory symptoms She has been to the hospital several times for N/V in the last few weeks. She has been trying to take promethazine but it isn't working or she vomits it right back up. By the end of the day she is able to tolerate Saltine crackers but nothing in the mornings. She denies abdominal pain, vaginal pain, vaginal bleeding or discharge. MD elicited complaint: nausea and vomiting Onset (ago): week(s) (4) Description of vomiting: food contents, watery and bilious Associated nausea: Yes Associated abdominal pain: No Location of pain: none Severity: similar to previous episodes Exacerbating factors: eating Relieving factors: vomiting Associated symptoms: denies other symptoms Related Data Previous Rx's Medication Instructions Recorded promethazine 12.5 mg PO Q6H PRN #14 tab 11/11/20 doxylamine-pyridoxine (vit B6) 1 tab PO BID #30 tab 11/13/20 ondansetron 4 mg PO Q8H PRN #20 tab 11/13/20 prochlorperazine maleate 5 mg PO BID PRN #20 tab 11/13/20 [Compazine] promethazine 25 mg PO Q6H PRN #15 tab 11/24/20 metoclopramide HCl [Reglan] 10 mg PO Q6H PRN #20 tab 11/27/20 Allergies Allergy/AdvReac Type Severity Reaction Status Date / Time No Known Allergies Allergy Verified 11/11/20 16:33 [No Known Allergies*] Review of Systems Review of Systems: Constitutional: No Fever, No Chills ENT/Mouth: + sore throat, No Rhinorrhea, No Swallowing Difficulty Eyes: No Eye Pain, No Swelling, No Redness Cardiovascular: No Chest Pain, No SOB, No Orthopnea, No Edema Respiratory: No Cough, No Sputum, No Wheezing, No dyspnea Gastrointestinal: + Nausea, + Vomiting, No Diarrhea, No abdominal Pain, No Hematochezia, No Melena Genitourinary: No Dysuria, No Urinary Frequency, No Hematuria,. No vaginal bleeding or discharge Musculoskeletal: No joint pain, No Myalgias Skin: No Skin Lesions, No rash Neuro: + Weakness, No Numbness, No Dizziness, No Headache Psych: + Anxiety/Panic, No Depression Gastrointestinal: Gastrointestinal: Reports nausea PMFSH Past Medical History Medical History No known health problems Social History Social History Alcohol intake: never Smoking Status: Never smoker Use of substances other than those prescribed or required for medical reasons: No Advance Directives: No Advance Directives Information Provided: Yes Physical Exam Vital Signs: Vital Signs: Last Vital Signs Temp 98.0 F 11/27/20 14:22 Pulse 72 11/27/20 14:22 Resp 20 11/27/20 14:22 BP 107/65 11/27/20 14:22 Pulse Ox 100 11/27/20 14:22 Body Mass Index 20.1 Appearance: Alert. Oriented X3. No acute distress. Eyes: Pupils equal, round and reactive to light. ENT: Pharynx normal. Neck: Normal inspection. Neck supple. CVS: Normal heart rate and rhythm. Pulses normal. Respiratory: No respiratory distress. Breath sounds normal. Abdomen: Soft and nontender. +BS x4 Skin: Skin warm and dry. Normal skin color. Normal skin turgor. No rashes. Extremities: No lower extremity edema. Neuro: Oriented X 3. No motor deficit. No sensory deficit. Course Course Course Narrative: 25 y/o female with recent COVID-19 presenting back to the ER with persistent N/V in the setting of early . This is her 4th time being seen in the ER for this since middle october. No relief with pro methazine. Will give IVF and zofran now, assess labs for metabolic derrangements. Reevaluation(s) Reevaluation #1: Lab workup is unremarkable. Will give PO trial after zofran was given. Reevaluation #2: Tolerating PO. She is stable for discharge. Has not trialed Reglan yet - we will try this and have her follow up with OB this week. Stable for discharge. MDM - Nausea/Vomiting/Diarrhea Lab Data Result diagrams: 11/27/20 14:37 11/27/20 14:37 Labs: Lab Results 11/27/20 11/27/20 Range/Units 14:37 14:37 WBC 9.0 (4.8-10.8) X10*3/uL RBC 4.19 L (4.20-5.50) X10*6/uL Hgb 12.1 (12.0-16.0) g/dl Hct 36.0 L (37-47) % MCV 85.9 (80-98) fL MCH 28.9 (27.0-33.0) pg MCHC 33.6 (31.0-35.0) g/dl RDW 12.6 (11.0-16.0) % Plt Count 212 (160-400) X10*3/uL MPV 11.2 (9.4-12.3) fL Immature Gran % (Auto) 0.4 (0.0-0.4) % Neut % (Auto) 67.2 (45-73) % Lymph % (Auto) 23.6 (20-40) % [place] % (Auto) 7.6 (2-11) % Eos % (Auto) 1.0 (0-4) % Baso % (Auto) 0.2 (0-2) % Lymph # (Auto) 2.1 (1.2-4.9) X10*3/uL [place] # (Auto) 0.7 (0.1-1.2) X10*3/uL Eos # (Auto) 0.1 (0.0-0.4) X10*3/uL Baso # (Auto) 0.0 (0.0-0.2) X10*3/uL Abs Immat Gran (auto) 0.04 H (0.00-0.03) X10*3/uL Absolute Neuts (auto) 6.0 (2.0-8.3) X10*3/uL Absolute Nucleated RBC 0.000 (0.0-0.012) X10*3/uL Nucleated RBC % (auto) 0.0 (0.0-0.2) /100WBC Sodium 136 (135-145) mmol/L Potassium 3.7 (3.3-5.1) mmol/l Chloride 102 (96-108) mmol/L Carbon Dioxide 25 (22-29) mmol/L Anion Gap 13 (12-20) BUN 7 L (9-16) mg/dL Creatinine 0.61 (0.5-1.4) mg/dL Estim Creat Clear Calc 128.4 Estimated GFR > 60 Random Glucose 83 (60-115) mg/dL Calcium 9.1 (8.4-10.2) mg/dL Magnesium 1.7 (1.6-2.6) mg/dL Total Bilirubin 0.3 (0.0-1.0) mg/dL Direct Bilirubin 0.2 (0.0-0.5) mg/dL AST 11 (5-31) U/L ALT 20 (0-31) U/L Alkaline Phosphatase 43 (39-117) U/L Total Protein 6.8 (6.5-8.0) g/dL Albumin 4.4 (3.5-5.0) g/dL Lipase 7 L (8-78) U/L Discharge Plan Discharge Clinical Impression: Nausea and vomiting during Patient Disposition: Home, Self-Care Instructions: Nausea and Vomiting in (ED), Hyperemesis Gravidarum (ED) Additional Instructions: Your lab workup today was unremarkable. We will start a trial of anti-nausea medication called Reglan. Take it 1st thing in the morning tomorrow to try and prevent nausea. Also recommend regularly taking doxylamine-pyridoxine medication that you were previously prescribed. This is a combination of vitamins and is the safest for you and your baby. Follow up with your ECONOMIC DEVELOPMENT DIRECTOR this week and let them know that you've been to the hospital several times. If you have persistent vomiting or develop abdominal pain, vaginal bleeding or any other concerning symptom come back to the ER for further evaluation. Prescriptions: New metoclopramide HCl [Reglan] 10 mg tablet 10 mg PO Q6H PRN (Reason: nausea and vomiting) Qty: 20 RF: 0 No Action promethazine 12.5 mg tablet 12.5 mg PO Q6H PRN (Reason: nausea and vomiting) Qty: 14 RF: 0 doxylamine-pyridoxine (vit B6) 10-10 mg tablet,delayed release (DR/EC) 1 tab PO BID Qty: 30 RF: 1 ondansetron 4 mg tablet,disintegrating 4 mg PO Q8H PRN (Reason: nausea and vomiting) Qty: 20 RF: 0 prochlorperazine maleate [Compazine] 5 mg tablet 5 mg PO BID PRN (Reason: nausea and vomiting) Qty: 20 RF: 0 promethazine 25 mg tablet 25 mg PO Q6H PRN (Reason: nausea and vomiting) Qty: 15 RF: 0
[2020-11-27 15:22] LABS: Alanine Aminotransferase 20 U/L (0-31); Albumin Level 4.4 g/dL (3.5-5.0); Alkaline Phosphatase 43 U/L (39-117); Anion Gap 13 (12-20); Aspartate Amino Transferase 11 U/L (5-31); Bilirubin Direct 0.2 mg/dL (0.0-0.5); Bilirubin Total 0.3 mg/dL (0.0-1.0); Blood Urea Nitrogen 7 mg/dL (9-16); Calcium 9.1 mg/dL (8.4-10.2); Carbon Dioxide 25 mmol/L (22-29); Chloride 102 mmol/L (96-108); Creatinine Clr Calc Pharmacy 128.4; Estimated Glomerular Filt Rate > 60; Glucose Random 83 mg/dL (60-115); Lipase 7 U/L (8-78); Magnesium 1.7 mg/dL (1.6-2.6); Potassium 3.7 mmol/l (3.3-5.1); Sodium 136 mmol/L (135-145); Total Protein 6.8 g/dL (6.5-8.0)
[2020-11-27 16:00] VITALS: BP 92/40; PULSE 66; RESP 16; TEMP 37; O2SAT 100
== END 2020-11-27 17:02 | disposition home or self-care (01) ==
PROVIDERS: Physician Assistant; Emergency Provider Emergency Medicine
DX: O26.91 Pregnancy related conditions, unspecified, first trimester (principal); Z79.899 Other long term (current) drug therapy; Z86.16 Personal history of COVID-19
CPT/HCPCS: 36415; 80048; 80076; 83690; 83735; 85025; 99284

== ENCOUNTER 2020-12-21 17:32 | Emergency (ER) | payer MEDICAID, SELFPAY ==
[2020-12-21 19:03] VITALS: BP 110/60; PULSE 63; RESP 16; TEMP 36.2; O2SAT 100; BMI 43.7
--- NOTE | 2020-12-21 20:23 | ED_ITS ---
HPI - General Adult General Chief complaint: Skin/Abscess/Foreign Body Stated complaint: Rash in mouth Time Seen by Provider: 12/21/20 21:01 Source: patient Mode of arrival: ambulatory Limitations: no limitations History of Present Illness HPI narrative: 25-year-old female approximately 2 months presents with painless bump to the back of her tongue. She states that she was recently tested for sexually transmitted infections including HIV which all are negative. She has not taken any medications or antibiotics, does not have history of immunosuppression, denies fevers, chills, nausea, vomiting, chest pain or pressure, palpitations, difficulty swallowing, difficulty managing secretions, anorexia, or edema. Related Data Previous Rx's Medication Instructions Recorded promethazine 12.5 mg PO Q6H PRN #14 tab 11/11/20 doxylamine-pyridoxine (vit B6) 1 tab PO BID #30 tab 11/13/20 ondansetron 4 mg PO Q8H PRN #20 tab 11/13/20 prochlorperazine maleate 5 mg PO BID PRN #20 tab 11/13/20 [Compazine] promethazine 25 mg PO Q6H PRN #15 tab 11/24/20 metoclopramide HCl [Reglan] 10 mg PO Q6H PRN #20 tab 11/27/20 Allergies Allergy/AdvReac Type Severity Reaction Status Date / Time No Known Allergies Allergy Verified 11/11/20 16:33 [No Known Allergies*] Review of Systems Review of Systems: Constitutional: No Weight loss, No Fever, No Chills, No Night Sweats, No Fatigue, No Malaise ENT/Mouth: No Hearing loss, No Ear Pain, No Nasal Congestion, No Sinus Pain, No Hoarseness, No sore throat, No Rhinorrhea, No Swallowing Difficulty Eyes: No Eye Pain, No Swelling, No Redness, No Foreign Body, No Discharge, No Vision Changes Cardiovascular: No Chest Pain, No SOB, No Dyspnea on Exertion, No Orthopnea, No Edema, No Palpitations Respiratory: No Cough, No Sputum, No Wheezing, No Smoke Exposure, No Dyspnea Gastrointestinal: No Nausea, No Vomiting, No Diarrhea, No Constipation, No abdominal Pain, No Hematochezia, No Melena Genitourinary: no irregular bleeding, No Dysuria, No Urinary Frequency, No Hematuria, No Urinary Incontinence, No Urgency, No Flank Pain, No Urinary Flow Changes, No Hesitancy Musculoskeletal: No joint pain, No Myalgias, No Joint Swelling Skin: No Skin Lesions, No rash Neuro: No Weakness, No Numbness, No Paresthesias, No Loss of Consciousness, No Dizziness, No Headache Psych: No Anxiety/Panic, No Depression, No SI/HI/AH/VH, No Social Issues Heme/Lymph: No Bruising, No Bleeding,No Lymphadenopathy Endocrine: No Polyuria, No Polydipsia, No Temperature Intolerance Yes all other systems are reviewed and are negative [facility] Past Medical History Attestation statement: The following information was validated with the patient. Source: old records reviewed Medical History No known health problems Social History Social History Alcohol intake: never Smoking Status: Never smoker Smoked in Last 30 Days: No Use of substances other than those prescribed or required for medical reasons: No Advance Directives: No Advance Directives Information Provided: No Physical Exam Vital Signs: Vital Signs: Last Vital Signs Temp 97.2 F 12/21/20 19:03 Pulse 63 12/21/20 19:03 Resp 16 12/21/20 19:03 BP 110/60 12/21/20 19:03 Pulse Ox 100 12/21/20 19:03 Body Mass Index 43.7 Appearance: Alert. Oriented X3. No acute distress. Eyes: Pupils equal, round and reactive to light. ENT: Pharynx normal. Neck: Normal inspection. Neck supple. CVS: Normal heart rate and rhythm. Pulses normal. Respiratory: No respiratory distress. Breath sounds normal. Abdomen: Soft and nontender. Skin: Skin warm and dry. Normal skin color. Normal skin turgor. Extremities: No lower extremity edema. Neuro: No motor deficit. No sensory deficit. Course Course Course Narrative: 25-year-old female presents with bump to the back of her tongue. The bumps of the same color as her tongue, evenly distributed towards the back and consistent with normal hypertrophic papillae. Patient does not have any difficulty swallowing, no exudate, tonsils are normal, cranial nerves 2-12 intact. Exam is normal Patient discharged home and advised to follow-up with PCP and or OBGYN as needed. Patient verbalized understanding of and agrees to plan of care to discharge home. Medical Decision Making Differential Diagnosis Differential Diagnosis: Aphthous ulcers, oral herpes simplex, canker, hypertrophic papillae Medical Records Medical records reviewed: Yes I reviewed the patient's medical records. Discharge Plan Discharge Clinical Impression: Hypertrophy, papillae, tongue Patient Disposition: Home, Self-Care Instructions: Normal Exam (ED) Additional Instructions: You were evaluated for hypertrophic tongue papillae, a normal finding. Please follow-up with her primary care physician and or OBGYN. Thank you for choosing this emergency department for evaluation. Please follow-up with primary care physician as needed. Return to the emergency department for any new, concerning, or worsening symptoms. Prescriptions: No Action promethazine 12.5 mg tablet 12.5 mg PO Q6H PRN (Reason: nausea and vomiting) Qty: 14 RF: 0 doxylamine-pyridoxine (vit B6) 10-10 mg tablet,delayed release (DR/EC) 1 tab PO BID Qty: 30 RF: 1 ondansetron 4 mg tablet,disintegrating 4 mg PO Q8H PRN (Reason: nausea and vomiting) Qty: 20 RF: 0 prochlorperazine maleate [Compazine] 5 mg tablet 5 mg PO BID PRN (Reason: nausea and vomiting) Qty: 20 RF: 0 promethazine 25 mg tablet 25 mg PO Q6H PRN (Reason: nausea and vomiting) Qty: 15 RF: 0 metoclopramide HCl [Reglan] 10 mg tablet 10 mg PO Q6H PRN (Reason: nausea and vomiting) Qty: 20 RF: 0 Interventions: ED Discharge Assessment Last Done: 12/21/20 21:04 Discharge Date/Time: 12/21/20 21:05
== END 2020-12-21 21:05 | disposition home or self-care (01) ==
PROVIDERS: Emergency Provider Emergency Medicine
DX: O26.91 Pregnancy related conditions, unspecified, first trimester (principal); K14.8 Other diseases of tongue; Z3A.08 8 weeks gestation of pregnancy; Z79.899 Other long term (current) drug therapy
CPT/HCPCS: 99283; 99284

== ENCOUNTER 2024-04-09 08:04 | Emergency (ER) | payer MEDICAID, SELFPAY ==
--- NOTE | 2024-04-09 08:25 | ED_ITS ---
HPI - General Adult General Chief complaint: Nausea/Vomiting/Diarrhea Stated complaint: Nausea, vomiting Source: patient Mode of arrival: ambulatory Limitations: no limitations History of Present Illness HPI narrative: Patient is a 28 year old assigned female at with a history of first trimester presenting to the emergency department today with nausea and vomiting. Patient states that over the last 2 weeks she has had constant nausea and vomiting. Patient states that 2 weeks ago she went to [facility] for this and there she was told that she was . Patient states that she has no idea how far along she is. Patient denies any vaginal bleeding or discharge. Patient denies any dizziness, lightheadedness, abdominal pain, fever, chills, blurry vision, double vision, loss of vision, chest pain, difficulty breathing, shortness of breath, back pain, night sweats, pain with urination, increased urinary frequency, increased urinary urgency, blood in her urine or stool, syncope or a near syncopal episode, recent trauma or falls, bowel incontinence, bladder incontinence, bowel retention, bladder retention, or any other complaints at this time. Onset (ago): week(s) (2) Severity: mild Severity scale (1-10): 3 Relieving factors: none Exacerbating factors: none Associated symptoms: nausea/vomiting Treatments prior to arrival: other (prescription antiemetics from [facility] ER) Related Data Previous Rx's ?Medication ?Instructions ?Recorded promethazine 12.5 mg tablet 12.5 mg PO Q6H PRN nausea and 11/11/20 vomiting #14 tabs doxylamine 10 mg-pyridoxine (vit 1 tab PO BID #30 tabs 11/13/20 B6) 10 mg tablet,delayed release ondansetron 4 mg disintegrating 4 mg PO Q8H PRN nausea and 11/13/20 tablet vomiting #20 tabs prochlorperazine maleate 5 mg 5 mg PO BID PRN nausea and 11/13/20 tablet (Compazine) vomiting #20 tabs promethazine 25 mg tablet 25 mg PO Q6H PRN nausea and 11/24/20 vomiting #15 tabs metoclopramide HCl 10 mg tablet 10 mg PO Q6H PRN nausea and 11/27/20 (Reglan) vomiting #20 tabs Allergies Allergy/AdvReac Type Severity Reaction Status Date / Time No Known Allergies Allergy Verified 04/09/24 08:29 [No Known Allergies*] Review of Systems Constitutional: Constitutional: Reports no additional constitutional complaints, Denies chills, Denies fever(s) and Denies night sweats Eyes: Eyes: Reports no additional eye complaints, Denies blurry vision, Denies change in vision, Denies diplopia, Denies eye discharge, Denies loss of vision and Denies eye pain ENT: Denies dizziness Cardiovascular: Cardiovascular: Reports no additional cardiovascular complaints, Denies chest pain, Denies lightheadedness, Denies Loss of Consciousness and Denies dyspnea Respiratory: Respiratory: Reports no additional respiratory complaints and Denies dyspnea Gastrointestinal: Gastrointestinal: Reports no additional gastrointestinal complaints, Denies abdominal pain, Denies melena, Denies hematochezia, Denies change in bowel habits, Denies change in stool character, Reports nausea and Reports vomiting Genitourinary: Genitourinary: Denies hematuria, Denies urinary frequency, Denies dysuria, Denies urinary incontinence, Denies urinary hesitancy and Denies urinary urgency Musculoskeletal: Musculoskeletal: Reports no additional musculoskeletal complaints, Denies numbness and Denies tingling Neurologic: Denies dizziness, Denies loss of vision, Denies numbness and Denies tingling Psychiatric: Psychiatric: Reports no additional psychiatric complaints Endocrine: Endocrine: Reports no additional endocrine complaints Hematologic/Lymphatic: Hematologic/Lymphatic: Reports no additional hematologic/lymphatic complaints Allergic/Immunologic: Allergic/Immunologic: Reports no additional allergic/immunologic complaints [facility] Past Medical History Attestation statement: The following information was validated with the patient. Source: old records reviewed and nursing notes reviewed Medical History No known health problems Social History Social History Alcohol intake: never Advance Directives: No Advance Directives Information Provided: No Do you have a plan to hurt others: No Plan Physical Exam ED Vital Signs: BMI result Body Mass Index 20.1 Const General: cooperative, no acute distress, alert and awake Nutritional Appearance: well nourished Orientation/consciousness: patient oriented x3 Limitations: no limitations HENMT Head: Yes normal to inspection and Yes atraumatic Ears: hearing grossly normal bilaterally and external ears normal General nose exam: Normal external nose present, no nasal discharge noted and no epistaxis Face and sinus: Yes normal facial exam, No abrasion and No laceration Mouth: Normal oral and palatal mucosa present, no drooling and no muffled voice Eyes General: appearance normal, both eyes and all related structures Periorbital: periorbital findings normal Eyelids: Yes eyelids normal Conjunctivae: conjunctivae normal Pupils: Equal, round and reactive pupils present EOM: EOMs intact bilaterally Neck Neck: Yes normal visual inspection, Yes full ROM and Yes no lymphadenopathy Chest Chest palpation & inspection: normal inspection of the chest Resp Effort & Inspection: normal respiratory effort and able to speak in complete sentences GI Inspection: Yes normal to inspection Neuro General: patient oriented x3 and moves all extremities Cranial nerves: Yes Equal, round and reactive pupils present Cognition (Neuro): normal cognition Motor exam (neuro): 5/5 motor strength present throughout Sensory Exam: Normal double simultaneous stimulation for sensation Coordination: [id number] test normal Extrem General: Yes normal to inspection, Yes full ROM and Yes capillary refill normal Psych Appearance: grossly normal Mental Status: mental status grossly normal Affect: normal affect Attitude: cooperative Thought process: Normal thought process present Thought content: Normal thought content present Insight: Good insight present (Psych) Course Course Course Narrative: RME performed by Marge Montaño PA-C. Patient is a 28 year old assigned female at presenting to the emergency department with nausea and vomiting in . Patient states that last week she went to [facility] and was told she was which was news to her. Patient states that she has been consistently vomiting and is unable to keep water down. Patient denies any vaginal bleeding or abdominal pain. Detailed physical exam and review of systems are deferred to the distribution lead. Labs and swabs ordered. Patient placed back in the waiting room pending room availability and results. Medical Decision Making Medical Decision Making MDM Narrative: Patient is a 28 year old assigned female at with a history of first trimester presenting to the emergency department today with nausea and vomiting. Patient's limited physical exam performed in triage was unremarkable. Patient's did not have her blood work drawn. Patient left the department without completing treatment. Patient left the department before myself or any of the other emergency department clinicians could explain to or review with the patient; physical exam findings, need or lack there of for additional testing, need or lack there of for a procedure to be performed, need or lack there of for hospital admission / transfer, need or lack there of for prescription medication, treatment options, or a treatment plan. Differential Diagnosis Differential Diagnoses: The differential diagnosis associated with the presentation includes First trimester Nausea Vomiting COVID-19 Influenza Admission/Observation Consideration of admission/observation: Escalation of care including admission/observation considered Patient would have been admitted to the hospital had she completed her work up and it had any findings where hospital admission was appropriate, her clinical presentation warranted hospital admission, had myself or any other emergency emergency department manager had the ability to discuss need or lack there of for hospital admission, and the patient hadn't left the department without completing treatment. Tests considered The following testing was considered but not selected: A CBC, CMP, HCG, and UA were all considered and ordered however, the patient left the department before any of these tests could be completed. Discharge Plan Discharge Clinical Impression: Nausea & vomiting, Patient Disposition: Left W/O Completing Treatment Prescriptions: No Action promethazine 12.5 mg tablet 12.5 mg PO Q6H PRN (Reason: nausea and vomiting) Qty: 14 0RF doxylamine-pyridoxine (vit B6) 10-10 mg tablet,delayed release (DR/EC) 1 tab PO BID Qty: 30 1RF ondansetron 4 mg tablet,disintegrating 4 mg PO Q8H PRN (Reason: nausea and vomiting) Qty: 20 0RF prochlorperazine maleate [Compazine] 5 mg tablet 5 mg PO BID PRN (Reason: nausea and vomiting) Qty: 20 0RF promethazine 25 mg tablet 25 mg PO Q6H PRN (Reason: nausea and vomiting) Qty: 15 0RF metoclopramide HCl [Reglan] 10 mg tablet 10 mg PO Q6H PRN (Reason: nausea and vomiting) Qty: 20 0RF Discharge Date/Time: 04/09/24 11:54
[2024-04-09 08:27] VITALS: BP 124/81; PULSE 68; RESP 18; TEMP 36.7; O2SAT 99; BMI 20.1
== END 2024-04-09 11:54 | disposition left against medical advice (07) ==
LOC: HO.ED 10:21
PROVIDERS: Emergency Provider Emergency Medicine
DX: O21.9 Vomiting of pregnancy, unspecified (principal); Z53.21 Procedure and treatment not carried out due to patient leaving prior to being seen by health care provider
CPT/HCPCS: 99281

== ENCOUNTER 2025-10-27 04:07 | Emergency (ER) | payer MEDICAID, SELFPAY ==
[2025-10-27 04:26] VITALS: BP 120/71; PULSE 60; RESP 17; TEMP 36.6; O2SAT 99; BMI 26.2
[2025-10-27 04:47] LABS: Hematocrit 40.5 % (37.0-47.0); Hemoglobin 13.6 g/dl (12.0-16.0); Mean Corpuscular HGB Conc 33.6 g/dl (31.0-35.0); Mean Corpuscular Hemoglobin 29.2 pg (27.0-33.0); Mean Corpuscular Volume 87.1 fL (80.0-98.0); NRBC Abs Auto 0.000 X10*3/uL (0.0-0.012); NRBC Pct Auto 0.0 /100WBC (0.0-0.2); Platelet Count 202 X10*3/uL (160-400); Red Blood Count 4.65 X10*6/uL (4.20-5.50)
[2025-10-27 05:01] LABS: Alanine Aminotransferase 32 U/L (0-31); Albumin Level 4.8 g/dL (3.5-5.0); Alkaline Phosphatase 85 U/L (39-117); Anion Gap 12 (12-20); Aspartate Amino Transferase 29 U/L (5-31); Blood Urea Nitrogen 6 mg/dL (9-16); Calcium 9.2 mg/dL (8.4-10.2); Carbon Dioxide 24 mmol/L (22-29); Chloride 108 mmol/L (96-108); Creatinine Clr Calc Pharmacy 129.7; Estimated Glomerular Filt Rate > 60; Lipase 11 U/L (8-78); Potassium 3.9 mmol/L (3.3-5.1); Sodium 140 mmol/L (135-145); Total Protein 7.3 g/dL (6.5-8.0)
[2025-10-27 05:15] LABS: WBC ABN SCTR FOR CBC 1; White Blood Count 15.1 X10*3/uL (4.8-10.8)
[2025-10-27 05:19] LABS: Band Neutrophils Percent 4 % (3-5); Lymphocytes Absolute Manual 2.4 X10*3/uL (1.2-4.9); Lymphocytes Percent Manual 16 % (20-40); Monocytes Absolute Manual 0.6 X10*3/uL (0.1-1.2); Monocytes Percent Manual 4 % (2-11); Neutrophils Absolute Manual 12.1 X10*3/uL (2.0-8.3); Neutrophils Percent Manual 76 % (45-73); RBC Morphology NORMAL
[2025-10-27 05:49] LABS: Appearance Urine Cloudy; Glucose Urine UA Negative (Negative); PH 7.5 (5.0-9.0); Specific Gravity - Urine 1.025 (1.005-1.025); UMIC TRIGGER UACC YES
[2025-10-27 05:53] LABS: UPreg QC Valid YES
--- OUTSIDE RECORDS SUMMARY | 2025-10-27 06:23 | XMS_ITS | Encounter Summary ---
Author Organization [facility] Address [address] [place] [address] Care Team Providers Care Latcher Name Role Phone Physician, No Pcp Primary Care Provider Unavaila ble Encounter Details Date Type Department Care Team (Late st Contact Info) Description 11/20/2024 Consult [facility] - Maternity [address] [place] [address] Briseida Valle RN Social History Tobacco Use Types Packs/Day Years Used Date Smoking Tobacco: Never Smokeless Tobacco: Never Alcohol Use Standard Drinks/Week Comments Not Currently 0 (1 standard drink = 0.6 oz pur e alcohol) Housing Instability Answer Date Recorde d Are you worried that in the next 2 months you may not have stable housing? No 11/20/2024 Food Access & Nutrition Answer Date Rec orded Do you have access to a vari ety of food including fruits and vegetables? Yes 11/20/2024 Health Literacy Answer Date Recorded How often do you need to hav e someone help you when you read instructions, pamphlets, or other written material from your doctor or pharmacy? Never 11/20/2024 Caregiver: How often do you need to have someone help you when you read instructions, pamphlets, or other written material from your doctor or pharmacy? Not on file 11/20/2024 Transportation Answer Date Recorded Has the lack of transportati on kept you from meetings, work, or from getting things needed for daily living? Not on file 11/20/2024 Has the lack of transportati on kept you from medical appointments or from getting medications? No 11/20/2024 Food Risk Answer Date Recorded Within the past 12 months we worried whether our food would run out before we got money to buy more. Never true 11/20/2024 Within the past 12 months th e food we bought just didn't last and we didn't have money to get more. Never true 11/20/2024 Dependent Care Answer Date Recorded Do you need help finding or paying for care for your loved ones. For example, early childhood aide classroom or elderly care for an older adult? No 11/20/2024 Education Answer Date Recorded Do you think completing more education or training, like finishing a GED, going to college, or learning a trade, would be helpful for you? N/A 11/20/2024 Employment and Income Answer Date Recor ded During the last four weeks, have you been actively looking for work? No 11/20/2024 Living Situation Answer Date Recorded What is your living situation? Unrecognized valu e 11/20/2024 Interpersonal Safety Answer Date Record ed Physical Abuse Unrecognized value 11/20/2024 Verbal Abuse Unrecognized value 11/20/2024 Comments No Sex and Gender Information Value Date Recorded Sex Assigned at Not on file Legal Sex Female 9:24 AM EST Gender Identity Not on file Sexual Orientation Not on file documented as of this encounter Progress Notes * Briseida Valle RN - 11/20/2024 11:59 PM EST EXP. MOM. BRIEFLY BF OTHER CHILDREN. MOM HAS BEEN INDEPENDENTLY BF. BABY 37.1 GA. DISCUSSED BF IN THE FIRST 24 HOURS AND FEEDING CUES. MOM WISHES TO BREAST AND FORMULA FEED. DISCUSSED EFFECT ON MILK PRODUCTION WHEN DOING BOTH. RECOMMENDED TO OFFER BREAST FIRST THEN FORMULA IF SHE CHOOSES. DISCUSSEDPUMPING AND GIVING EBM VS. FORMULA. documented in this encounter Plan of Treatment Not on file documented as of this encounter Visit Diagnoses Not on filedocumented in this encounter Care Teams Latcher Relationship Specialty Start Date End Date Physician, No Pcp PCP - General 10/15/24 documented as of this encounter
--- OUTSIDE RECORDS SUMMARY | 2025-10-27 06:23 | XMS_ITS | Clinical Summary ---
Author Organization [facility] Address [address] [place] [address] [address] [place] [address] Care Team Providers Care Professor Of Journalism Name Role Phone Tori Valentin [facility] Primary Care Provider [phone] Allergies No known active allergies Medications No known medications Active Problems No known active problems Encounters Date Type Department Care Team Description 09/17/[address] [address] Tori Valentin [employer] Care Management (C3 TC #4-case closed) 08/24/[address] [address] Tori Valentin [facility] Care Management (C3CM TC #3-unable to lvm) 08/20/[address] [address] Tori Valentin [employer] OPERATOR provider out 08/2508/17/2025 Patient Outreach [address] [address] Tori Valentin FNP Pre-visit Planning ((Unable to reach for PVP screening and or LVM) to be completed in office) 07/29/[address] [address] Tori Valentin [facility] Care Management (C3 TC #2-unable to lvm) from Last 3 Months Immunizations Immunization Administration Dates Next Due DTP 10/17/1998,02/22/1998,1997 DTaP 10/17/1998,02/22/1998,1997 DTaP, 5 pertussis antigens 08/28/2002 HPV, Quadrivalent 10/31/2011,03/17/2010,11/01/20 08 Hep B, Adolescent or Pediatric 10/17/1998,1997,1997 Hib (PRP-T) 10/17/1998,02/22/1998,1997 IPV 07/12/2005, 2,10/17/1998,02/22,1997 Influenza, IIV3, injectable 11/01/2008 Influenza, seasonal, injecta ble, preservative free 08/05/2024 MMR 07/12/2005,08/28/2002,10/17/1998 Meningococcal MPSV4 11/01/2008 OPV, Trivalent 10/17/1998,02/22/1998,1997 TD (adult), 2 Lf tetanus tox oid, preservative free, adsorbed 01/02/2019,07/12/2005 Tdap 03/17/2010 Varicella 11/01/2008,07/12/2005,08/28/2002 Social History Tobacco Use Types Packs/Day Years Used Date Smoking Tobacco: Every Day Cigarettes Passive Smoke Exposure: Current Smokeless Tobacco: Never Tobacco Cessation:Ready to Q uit: Not Asked; Counseling Given: Not Answered Alcohol Answer Date Recorded Frequency of Alcohol Consumption Not on file 08/05/2024 Average Number of Drinks Not on file 024 Frequency of Binge Drinking Not on file 07/26 Score 0 08/05/2024 Depression Answer Date Recorded Patient Health Questionnaire-9 Score 0 08/05/2024 Patient Health Questionnaire-9 Score 0 08/05/2024 Last PHQ-9: Questionnaire Data Not on file 0 08/05/2024 Housing Stability Answer Date Recorded What is your housing situation today? I have dereck john 08/05/[address] you li ve. Do you have problems with any of the following? None of the above 08/05/2024 Food Insecurity Answer Date Recorded Within the past 12 months, y ou worried that your food would run out before you got money to buy more: Never True 08/05/2024 Within the past 12 months,th e food you bought just didn't last and you didn't have enough money to get more: Never True 09/2024 Transportation Answer Date Recorded In the past 12 months, has l ack of transportation kept you from medical appts, meetings, work or from getting things needed for daily living? No 08/05/2024 Utilities Answer Date Recorded In the past 12 months, has t he electric, gas, oil or water company threatened to shut off services in your home? No 08/05/2024 Depression Answer Date Recorded Patient Health Questionnaire-2 Score 0 08/05/2024 Internet Access Answer Date Recorded Internet Access Q1 Yes 08/05/2024 Internet Access Q2 Not on file 08/05/2024 Comments No Sex and Gender Information Value Date Recorded Sex Assigned at Female 09/24/2022 10:17 AM EDT Legal Sex Female 10:17 AM EDT Gender Identity Choose not to disclose 10:17 AM EDT Sexual Orientation Choose not to disclose 2021 10:17 AM EDT Last Filed Vital Signs Vital Sign Reading Time Taken Comments Blood Pressure 107/65 08/05/2024 2:00 PM EDT Pulse 88 08/05/2024 2:00 PM EDT Temperature 36.3 C (97.4 F) 08/05/2024 2:00 PM EDT Respiratory Rate 20 08/05/2024 2:00 PM EDT Oxygen Saturation - - Inhaled Oxygen Concentration - - Weight 72.6 kg (160 lb) 08/05/2024 2:00 PM EDT Height 157.5 cm (5' 2 ) 08/05/2024 2:00 PM EDT Body Mass Index 29.26 08/05/2024 2:00 PM EDT Plan of Treatment Health Maintenance Due Date Last Done Comments HIV Screening 1997 Lipid Panel 1997 Disability Screening 1997 Alcohol/Substance Use Screening 2009 Family Planning (PISQ) 2012 Hepatitis C Screening 2015 Pneumococcal Vaccine: Pediatrics (0 to 5 Years) and At-Risk Patients (6 to 49) Years (1 of 2 - PCV) 2016 Pap Smear 2018 COVID-19 Vaccine (1 - season) 2025 Influenza Vaccine (#1) 2025 08/05/2024, 2007 Depression Screening 08/05/2025 08/05/2024, 08/05/20 24 SDOH Screening 08/05/2025 08/05/2024 Tobacco Screening 12/09/2025 12/09/2024 DTaP/Tdap/Td Vaccines (8 - Td or Tdap) 09/18/2034 09/18/2024, 01/02/2019, 03/17/2010, Additional history exists Zoster Vaccines (1 of 2) 2047 RSV Patients and Patients Aged 60 years or older (1 - 1-dose 75+ series) 2072 HIB Vaccines Completed 10/17/1998, 01/25, 1997 Hepatitis B Vaccines Completed 10/17/1998, 02/22/1998, 1997 IPV Vaccines Completed 07/12/2005, 02/2002, 10/17/1998, Additional history exists Meningococcal Vaccine Aged Out 11/01/2008 No katie ryanne eligible based on patient's age to complete this topic HPV Vaccines Completed 10/31/2011, 02/24, 11/01/2008 Hepatitis A Vaccines Aged Out No long er eligible based on patient's age to complete this topic Meningococcal B Vaccine Aged Out No l onger eligible based on patient's age to complete this topic RSV under 20 months Aged Out No longe r eligible based on patient's age to complete this topic Rotavirus Vaccines Aged Out No longer eligible based on patient's age to complete this topic [place] [place] [address] STANDARD Care Teams Professor Of Journalism Relationship Specialty Start Date End Date Tori Valentin FNP [address] [place] [id number] PCP - General Family Medicine 05/08/22
--- OUTSIDE RECORDS SUMMARY | 2025-10-27 06:23 | XMS_ITS | Clinical Summary ---
Author Organization [address] Address [address] [place] [phone] Phone Care Team Providers Care Chief Passenger Ship Steward/Stewardess Name Role Phone Physician, No Pcp Primary Care Provider Unavaila ble Allergies No known active allergies Medications QCB238/iron/FA/ o3/dha/epa/fish ( MULTI-DHA,WITH VIT K, ORAL) Take by mouth. Ac tive ferrous gluconate (FERGON) 324 mg (38 mg iron) tabletIndicatio ns:Anemia during Take 1 tablet (324 mg total) by mouth every other day. 15 each 11 4 11/03/20 25 Active glycerin-witch Gary 12.5-50 % pads Apply 1 each topically if needed for irritation. 4 Active medroxyPROGESTE Fransisco (DEPO-PROVERA) 150 mg/mL injection Inject 1 mL (150 mg total) into the shoulder, thigh, or buttocks 1 (one) time for 1 dose. 1 mL 4 Active Active Problems Problem Noted Date Diagnosed Date Anemia during 11/03/2024 Overview (11/22/2024): Admission hgb 10.3, QBL 200mL, will advise to continue on Fe PP care, subsequent in third [facility] 10/15/2024 Overview (11/02/2024): 1. [facility] site: [address] 2. Delivery site: [facility] 3. Mobile Mommas: No 4. Dating criteria: LMP confirmed by 1st trimester ultrasound 5. Blood type: O+ 6. Genetic screening: Nuchal Date: 06/01/2024-WNL Panorama Result: Negative Horizon Date: 05/13 Result: Neg 6. GBS: Date: 7. FOB name: William Sanchez 8. Plans A. Epidural or other pain management - B. Labor support identified - C. Tdap - Date:, Flu - Date: D. Breast or Bottle feed: both breast and bottle E. Baby's name - baby girl F. Circumcision - NA 9. Hospital Course: Abnormal Pap smear of cervix 05/27/2024 Overview (09/04/2024): During second . Had pap and it was normal per pt. Last Assessment & Plan: Repeat Pap today Marijuana use 05/14/2024 Overview (11/22/2024): + at intake, stopped this and cigs whens he found out she was Last Assessment & Plan: Discussed risks associated with marijuana use in are based on limited studies and include risk of decreased IQ, cognitive delay, and attention deficit. I also explained that use is not recommended while breast feeding due to substantial amount passed through breast milk with minimal known about continuous churn buttermaker affects. She understood. She has no plans to use during . + at intake, stopped this and cigs whens he found out she was 08/20- Negative Utox Last Assessment & Plan: Discussed risks associated with marijuana use in are based on limited studies and include risk of decreased IQ, cognitive delay, and attention deficit. I also explained that use is not recommended while breast feeding due to substantial amount passed through breast milk with minimal known about continuous churn buttermaker affects. She understood. She has no plans to use during . Maternal varicella, non-immune 05/14/2024 Overview (11/22/2024): Pt declined vaccine at [facility] Resolved Problems Problem Noted Date Diagnosed Date Resolved Date Uterine contractions 11/20/2024 024 Excessive weight gain during 08/20/2024 11/22/2024 Overview (11/22/2024): 65lb total weight gain- encouraged healthy food options 08/20- 45lb at 24 weeks GA, encouraged healthy eating, staying active and cutting back on sugary drinks Medical History Medical History Date Comments Abnormal Pap smear of cervix 05/27/2024 DX: Abnormal Pap smear of cervix Family History Medical History Relation Name Comments No Known Problems Brother No Known Problems Daughter 1 Kialexzys No Known Problems Daughter 2 Alexzyanis No Known Problems Father No Known Problems Maternal Grandfather Diabetes Maternal Grandmother Thyroid disease Maternal Grandmother Thyroid disease Mother No Known Problems Paternal Grandfather No Known Problems Paternal Grandmother No Known Problems Sister Breast cancer Neg Hx Ovarian cancer Neg Hx Pancreatic cancer Neg Hx Relation Name Status Comments Brother Daughter 1 Kialexzys Alive Daughter 2 Alexzyanis Alive Father Maternal Grandfather Maternal Grandmother Mother Paternal Grandfather Paternal Grandmother Sister Social History Tobacco Use Types Packs/Day Years [...] care for your loved ones. For example, child watch attendant or elderly care for an older adult? [...] on file Sexual Orientation Not on file Obstetrics History Para Term AB IAB SAB Ectopic Multiple Livin g Live Births 3 3 3 0 3 3 Date Outcome GA Total Labor Labor/2nd/3rd Weight Sex Type Anes PTL Elysia A1 A5 Name Clin 2013 Term 3317 g (117 oz) F Vag-S pont Livin g Alexzy anis 2020 Term 3118 g (110 oz) F Vag-S pont Livin g Kialex zys 2023 Term 37w 1d 6h 55m 6h 20m/0h 09m/0h 26m 3440 g (121.3 oz) F Vag-S pont None N Livin g 8 9 Kiarel leticia Soni CNM Complications:None Delivery Location:[facility] Last Filed Vital Signs Vital Sign Reading Time Taken Comments Blood Pressure 113/78 11/22/2024 8:54 AM EST Pulse 92 11/22/2024 8:54 AM EST Temperature 36.4 C (97.5 F) 11/22/2024 8:54 AM EST Respiratory Rate 18 11/22/2024 8:54 AM EST Oxygen Saturation 99% 11/22/2024 8:54 AM EST Inhaled Oxygen Concentration - - Weight 88 kg (194 lb) 11/19/2024 10:45 AM EST Height 170.2 cm (5' 7 ) 08/20/2024 10:10 AM EDT Body Mass Index 30.38 08/20/2024 10:10 AM EDT Plan of Treatment Health Maintenance Due Date Last Done Comments Cervical Cancer Screening: Pap Smear 2018 Depression Screening 11/25/2024 COVID-19 Vaccine ( season) 2025 Influenza Vaccine (#1) 2025 08/05/2024, 2007 Social Influencers of Health Screening 11/20/2025 11/20/2024 DTaP,Tdap,and Td Vaccines (8 - Td or Tdap) 09/18/2034 09/18/2024, 01/02/2019, 03/17/2010, Additional history exists RSV Immunization Adult Patients (1 - 1-dose 75+ series) 2072 HIB Vaccines Completed 10/17/1998, 01/25, 1997 Hepatitis B Vaccines Completed 10/17/1998, 02/22/1998, 1997 IPV Vaccines Completed 07/12/2005, 02/2002, 10/17/1998, Additional history exists MMR Vaccines Completed 07/12/2005, 02/2002, 10/17/1998 Meningococcal ACWY Vaccine Aged Out 11/01/2008 N o longer eligible based on patient's age to complete this topic Varicella Vaccines Completed 11/01/2008, 0 07/12/2005, 08/28/2002 HPV Vaccines Completed 10/31/2011, 02/24, 11/01/2008 HIV Screening Completed 05/13/2024, 05/13/2024 Hepatitis C Screening Completed 05/13/2024 Hepatitis A Vaccines Aged Out No long er eligible based on patient's age to complete this topic Meningococcal B Vaccine Aged Out No l onger eligible based on patient's age to complete this topic Pneumococcal Vaccine: Pediatrics (0 to 5 Years) and At-Risk Patients (6 to 49 Years) Aged Out No longer eligible based on patient's age to complete this topic RSV Immunization Patients Under 20 months Aged Out No longer eligible based on patient's age to complete this topic Procedures Procedure Name Priority Date/Time Associated Diagnosis Comments HM HEPATITIS C SCREENING Routine 05/13/2024 HIV SCREENING Routine 05/13/2024 from Last 3 Months or Most Recently Relevant to Health Maintenance Results * HIV Screening (05/13/2024) HIV Screening abstracted Historical Provider HEALTH MAINTENANCE Final Result * Hepatitis C Screening (05/13/2024) Hepatitis C Screening abstracted us Historical Provider MD HEALTH MAINTENANCE Final Result from Last 3 Months or Most Recently Relevant to Health Maintenance Insurance MEDICAID - [place] Advance Directives * Full Code - Default (Latest Code Status on File) Date Activated Date Inactivated Comments 11/20/2024 8:55 AM 11/22/2024 11:54 AM This is o rder is used when code status has not been discussed with the patient, or code status is otherwise unknown/unconfirmed To update the patient's code status, place a code status order. Do not modify or discontinue any currently active code status orders. * Full Code - Confirmed Date Activated Date Inactivated Comments 11/20/2024 6:12 AM 11/20/2024 8:55 AM This code status was ascertained in the following way: Code status discussion: discussion with patient To update the patient's code status, place a code status order. Do not modify or discontinue any currently active code status orders. Care Teams Chief Passenger Ship Steward/Stewardess Relationship Specialty Start Date End Date Physician, No Pcp PCP - General 10/15/24
--- OUTSIDE RECORDS SUMMARY | 2025-10-27 06:23 | XMS_ITS | Encounter Summary ---
Author Organization [facility] Address [address] [place] [address] Care Team Providers Care Commission Broker Name Role Phone Physician, No Pcp Primary Care Provider Unavaila ble Encounter Details Date Type Department Care Team (Late st Contact Info) Description 11/22/2024 Consult [facility] [address] [place] [address] Choco Chiu Social History Tobacco Use Types Packs/Day Years [...] care for your loved ones. For example, children's zoo caretaker or elderly care for an older adult? [...] on file documented as of this encounter Plan of Treatment Not on file documented as of this encounter Visit Diagnoses Not on filedocumented in this encounter Care Teams Commission Broker Relationship Specialty Start Date End Date Physician, No Pcp PCP - General 10/15/24 documented as of this encounter
--- NOTE | 2025-10-27 06:36 | ED_ITS ---
HPI - Abdominal Pain General Chief Complaint: Abdominal Pain Stated Complaint: N/V/D Time Seen by Provider: 10/27/25 06:09 Source: patient Mode of arrival: ambulatory Limitations: no limitations History of Present Illness ED Provider: HPI narrative: 30-year-old woman presenting with a epigastric abdominal pain, uses tobacco, denies coffee use, states has been vomiting and had diarrhea as well, no fevers or chills unsure if she is no vaginal bleeding or discharge no hematemesis or hematochezia reported. No prior abdominal surgeries reported Related Data Previous Rx's ?Medication ?Instructions ?Recorded promethazine 12.5 mg tablet 12.5 mg PO Q6H PRN nausea and 11/11/20 vomiting #14 tabs doxylamine 10 mg-pyridoxine (vit 1 tab PO BID #30 tabs 11/13/20 B6) 10 mg tablet,delayed release ondansetron 4 mg disintegrating 4 mg PO Q8H PRN nausea and 11/13/20 tablet vomiting #20 tabs prochlorperazine maleate 5 mg 5 mg PO BID PRN nausea a nd 11/13/20 tablet (Compazine) vomiting #20 tabs promethazine 25 mg tablet 25 mg PO Q6H PRN nausea and 11/24/20 vomiting #15 tabs metoclopramide HCl 10 mg tablet 10 mg PO Q6H PRN nause a and 11/27/20 (Reglan) vomiting #20 tabs famotidine 20 mg tablet 20 mg PO BEDTIME #30 tabs loperamide 2 mg capsule 2 mg PO Q6H PRN loose stool #30 10/27/25 caps ondansetron 4 mg disintegrating 4 mg PO Q8H PRN nausea and 10/27/25 tablet vomiting #4 tabs sucralfate 1 gram tablet (Carafate) 1 g PO Q6H 7 days #28 tabs 10/27/25 Allergies Allergy/AdvReac Type Severity Reaction Status Date / Time No Known Allergies (No Known Allergy Verified 10/27/25 04:28 Allergies*) Review of Systems Constitutional: Reports as per HPI [facility] Past Medical History Medical History No known health problems Social History Social History Alcohol intake: never Advance Directives: No Do you have a plan to hurt others: No Plan Physical Exam ED Exam Exam: ?General: ??looks age appropriate ?No scleral icterus, mucosa non dry Neck: Supple, no LAD ?CV: RRR, no obvious murmurs appreciated ?Resp: ?No wheezing rales rhonchi no stridor moving air well Abd: ?Bowel sounds are present, epigastric tenderness fairly midline no rebound no rigidity negative Martins's sign no tenderness in the lower quadrants MSK: FROM, strength 5/5 all extremities Skin: No jaundice ?Neuro: ?Alert and oriented x3, moving upper and lower extremities symmetrically, no obvious facial asymmetry noted, cranial nerves 2-12 intact Vital Signs: Vital Signs - 24 hr 10/27/25 04:26 Temperature 97.9 F Pulse Rate 60 Respiratory Rate 17 Blood Pressure 120/71 Pulse Oximetry 99 Oxygen Delivery Method Room Air BMI result Body Mass Index 26.2 Medical Decision Making Medical Decision Making [facility] Narrative: 6:39 AM 10/27/2025 (Dr. Elmer Dee): Presenting with a epigastric discomfort and abdominal exam is essentially with tenderness right over the stomach area that is midline no tenderness in the right upper quadrant or lower quadrants to suspect appendicitis cholecystitis or colitis, she is not , LFTs were checked and there was no elevation of lipase to suspect pancreatitis, non regular alcohol drinker, possibly viral, likely lifestyle related, did not feel further imaging such as CT or ultrasound is indicated this time, symptomatic control, see my discharge instructions Differential Diagnosis Differential Diagnoses: The differential diagnosis associated with the presentation includes (Cholecystitis, pancreatitis, hepatitis, gastritis, cholangitis, choledocholithiasis, SBO, ) Admission/Observation Consideration of admission/observation: Escalation of care including admission/observation considered Lab Data [facility] Lab Attestation statement: I reviewed the patient's lab results. 10/27/25 04:38 10/27/25 04:38 Labs: Lab Results 10/27/25 10/27/25 Range/Units 04:38 05:35 WBC 15.1 H (4.8-10.8) X10*3/uL RBC 4.65 (4.20-5.50) X10*6/uL Hgb 13.6 (12.0-16.0) g/dl Hct 40.5 (37.0-47.0) % MCV 87.1 (80.0-98.0) fL MCH 29.2 (27.0-33.0) pg MCHC 33.6 (31.0-35.0) g/dl RDW 13.8 (11.0-16.0) % Plt Count 202 (160-400) X10*3/uL MPV 11.7 (9.4-12.3) fL Immature Gran % (Auto) Cancelled Neut % (Auto) Cancelled Lymph % (Auto) Cancelled Johnston % (Auto) Cancelled Eos % (Auto) Cancelled Baso % (Auto) Cancelled Lymph # (Auto) Cancelled Johnston # (Auto) Cancelled Eos # (Auto) Cancelled Baso # (Auto) Cancelled Abs Immat Gran (auto) Cancelled Absolute Neuts (auto) Cancelled Absolute Nucleated RBC 0.000 (0.0-0.012) X10*3/uL Nucleated RBC % (auto) 0.0 (0.0-0.2) /100WBC Neutrophils % (Manual) 76 H (45-73) % Band Neutrophils % 4 (3-5) % Lymphocytes % (Manual) 16 L (20-40) % Monocytes % (Manual) 4 (2-11) % Abs Neuts (Manual) 12.1 H (2.0-8.3) X10*3/uL Lymphocytes # (Manual) 2.4 (1.2-4.9) X10*3/uL Monocytes # (Manual) 0.6 (0.1-1.2) X10*3/uL Platelet Estimate NORMAL (NORMAL) Plt Morphology Comment NORMAL RBC Morphology NORMAL Sodium 140 (135-145) mmol/L Potassium 3.9 (3.3-5.1) mmol/L Chloride 108 (96-108) mmol/L Carbon Dioxide 24 (22-29) mmol/L Anion Gap 12 (12-20) BUN 6 L (9-16) mg/dL Creatinine 0.64 (0.5-1.4) mg/dL Estim Creat Clear Calc 129.7 Estimated GFR > 60 Random Glucose 112 (60-115) mg/dL Calcium 9.2 (8.4-10.2) mg/dL Total Bilirubin 0.5 (0.0-1.0) mg/dL Direct Bilirubin 0.2 (0.0-0.5) mg/dL AST 29 (5-31) U/L ALT 32 H (0-31) U/L Alkaline Phosphatase 85 (39-117) U/L Total Protein 7.3 (6.5-8.0) g/dL Albumin 4.8 (3.5-5.0) g/dL Lipase 11 (8-78) U/L Urine Color Yellow Urine Appearance Cloudy Urine pH 7.5 (5.0-9.0) Ur Specific [place] 1.025 (1.005-1.025) Urine Protein 30 (1+) H (Neg-Trace) mg/dL Urine Glucose (UA) Negative (Negative) mg/dL Urine Ketones 80 (Negative) mg/dL Urine Blood Trace H (Negative) Urine Nitrite Negative (Negative) Ur Leukocyte Esterase Negative (Negative) Urine RBC 3-5 H (0-2) /HPF Urine WBC 0-5 (0-5) /HPF Ur Squamous Epith Cells 11-20 (0-2) /HPF Urine Bacteria 4+ (None Seen) Hyaline Casts 3-5 (0-2) /LPF Urine Test NEGATIVE (NEGATIVE) Tests considered The following testing was considered but not selected: CT abdomen and pelvis with IV contrast Gallbladder ultrasound Discharge Plan Discharge Clinical Impression: Epigastric abdominal pain, Nausea & vomiting Additional Instructions: Your blood work and physical examination is consistent with stomach inflammation along with other symptoms this is either something like a GI bug or related to your diet, I recommend making sure that you abstain from anything spicy much as a wide variety of foods including juices, soda, pasta, pizza etc. look up BRAT diet and that is generally what I would recommend for the next 1 week or so, take Carafate 1 pill 20 minutes before any meals, make sure you stay hydrated there was no evidence that you were dehydrated based on your blood work, you can use loperamide 2 mg after each loose bowel movement, famotidine 20 mg before bedtime for the next 1 month, and Zofran as needed for nausea and vomiting every 8 hours, follow up with the PCP, recommend smoking cessation, any other issues concerns come back to the ED You can continue taking Tylenol 975 mg every 6 hours needed for pain, it is expected you will have a degree of discomfort with food ,modify your diet to find the food that is easier to digest until your improvement. Prescriptions: New sucralfate [Carafate] 1 gram tablet 1 g PO Q6H 7 Days Qty: 28 0RF famotidine 20 mg tablet 20 mg PO BEDTIME Qty: 30 0RF ondansetron 4 mg tablet,disintegrating 4 mg PO Q8H PRN (Reason: nausea and vomiting) Qty: 4 0RF loperamide 2 mg capsule 2 mg PO Q6H PRN (Reason: loose stool) Qty: 30 0RF Rx Instructions: 2mg after each loose BM max 16mg daily No Action promethazine 12.5 mg tablet 12.5 mg PO Q6H PRN (Reason: nausea and vomiting) Qty: 14 0RF doxylamine-pyridoxine (vit B6) 10-10 mg tablet,delayed release (DR/EC) 1 tab PO BID Qty: 30 1RF ondansetron 4 mg tablet,disintegrating 4 mg PO Q8H PRN (Reason: nausea and vomiting) Qty: 20 0RF prochlorperazine maleate [Compazine] 5 mg tablet 5 mg PO BID PRN (Reason: nausea and vomiting) Qty: 20 0RF promethazine 25 mg tablet 25 mg PO Q6H PRN (Reason: nausea and vomiting) Qty: 15 0RF metoclopramide HCl [Reglan] 10 mg tablet 10 mg PO Q6H PRN (Reason: nausea and vomiting) Qty: 20 0RF Print Language: Portuguese
[2025-10-27] MEDS: PHENobarb/Hyoscy/Atropine/Scop 10 ML ELIXIR 5 ML PO (06:54)
[2025-10-27] MEDS: Lidocaine HCl Viscous 2 % 15 ML SOLUTION PO (06:54)
[2025-10-27] MEDS: Magnesium Hydrox/Alum Hydrox 30 ML ORAL.SUSP 15 ML PO (06:54)
[2025-10-27 07:49] VITALS: BP 116/71; PULSE 65; RESP 16; TEMP -17.7; TEMP 0; O2SAT 98
== END 2025-10-27 07:50 | disposition home or self-care (01) ==
PROVIDERS: Emergency Provider Emergency Medicine
DX: R10.13 Epigastric pain (principal); R11.2 Nausea with vomiting, unspecified; R19.7 Diarrhea, unspecified
CPT/HCPCS: 36415; 80048; 80076; 81001; 81025; 83690; 85007; 85025; 85027; 96372; 99283; 99284; J1885